=== PATIENT | female | born 1945 | race Asian ===

== ENCOUNTER → 2017-09-30 | Outpatient (CLI) | payer MEDICARE ==
[~2017-09-30] MED LIST: ACEBUTOLOL HCL400 MG PO; AMLODIPINE BES2.5 MG PO; BENZONATATE200 MG PO; CELEBREX; CELEBREX200 MG PO; DOXYCYCLINE HYCLATE PO; GLIMEPERIDE PO; LEVOTHYROXINE PO; LOSARTAN PO; MONTELUKAST SODIUM PO; MUCINEX600 MG PO; OMEPRAZOLE BICARB; PANTOPRAZOLE SO40 MG PO; SIMVASTATIN PO; TRADJENTA PO; [UNRECOGNIZED DRUG - OTHER] PO; bystolic PO
== END ==
LOC: US 11:31
PROVIDERS: ATTEND Family Medicine
DX: I82.401 Acute embolism and thrombosis of unspecified deep veins of right lower extremity (principal); M79.604 Pain in right leg; M79.89 Other specified soft tissue disorders
CPT/HCPCS: 93971

== ENCOUNTER → 2017-12-05 | Outpatient (CLI) | payer MEDICARE ==
--- NOTE | 2017-12-05 17:20 | Diagnostic Imaging Report ---
PROCEDURE:X-RAY RIGHT FOOT, COMPLETE COMPARISON:None. INDICATIONS:SWELLING TO RIGHT FOOT. DENIES PAIN FINDINGS: Bones: Well-developed in mineralized without fracture, dislocation, or focal osseous lesion. Mild degenerative changes of the MTP. An os peroneum is present. The ankle, hindfoot, and midfoot are unremarkable. Soft tissues: Unremarkable. CONCLUSION: Mild degenerative changes of the first MTP. Otherwise unremarkable exam. Dictated by: Tyrese Enriquez M.D. on 12/05/2017 at 17:20 Electronically approved by: Tyrese Enriquez M.D. on 12/05/2017 at 17:20
== END | disposition home or self-care (01) ==
LOC: RAD 12:43
PROVIDERS: ATTEND Family Medicine
DX: M79.671 Pain in right foot (principal); M79.661 Pain in right lower leg; R60.9 Edema, unspecified
CPT/HCPCS: 93926

== ENCOUNTER 2018-05-30 22:46 | Observation (INO) | payer MEDICARE ==
[~2018-05-30] VITALS: Ht 157.5 cm; Wt 69.9 kg
[2018-05-30] MEDS ORDERED: ASPIRIN 81 MG CHEW TAB PO ONE (23:00)
[2018-05-30] MEDS ORDERED: NITROGLYCERIN 2% OINT 1 GM PKT TOP ONE (23:00)
[2018-05-30 23:02] LABS: BASOPHILS # (AUTO) 0.1 (0.0-0.1); BASOPHILS % 0.7 % (0.0-1.0); EOSINOPHILS # (AUTO) 0.1 (0.0-0.4); EOSINOPHILS % 1.4 % (0.0-6.0); HEMATOCRIT 36.6 % (34.2-44.1); HEMOGLOBIN 12.2 g/dL (12.0-16.0); LYMPHOCYTES # (AUTO) 3.1 (1.0-3.2); LYMPHOCYTES % 34.4 % (18.0-39.1); MEAN CORPUSCULAR HEMOGLOBIN 28.5 pg (28-32); MEAN CORPUSCULAR HGB CONC 33.3 g/dL (31-35); MEAN CORPUSCULAR VOLUME 85.5 fL (81-99); MONOCYTES # (AUTO) 0.7 (0.2-0.8); MONOCYTES % 7.8 % (4.4-11.3); NEUTROPHILS % 55.5 % (38.7-80.0); PLATELET COUNT 288 x10e3/uL (140-360); RED BLOOD COUNT 4.28 x10e6/uL (3.6-5.1); RED CELL DISTRIBUTION WIDTH 15.2 % (11.7-14.4)
[2018-05-30 23:13] LABS: INR 1.01; PROTHROMBIN TIME 12.5 seconds (11.9-14.5)
[2018-05-30 23:22] LABS: ALANINE AMINOTRANSFERASE 21 IU/L (0-55); ALBUMIN 3.7 g/dL (3.5-5.0); ALKALINE PHOSPHATASE 74 IU/L (40-150); ANION GAP 15.5 mmol/L (8-16); BLOOD UREA NITROGEN 11 mg/dL (7-26); BUN/CREATININE RATIO 13 (6-25); CALCIUM 8.7 mg/dL (8.4-10.2); CARBON DIOXIDE 23 mmol/L (22-29); CHLORIDE 106 mmol/L (98-107); CREATINE KINASE 52 IU/L (29-168); CREATININE, SERUM 0.88 mg/dL (0.57-1.11); EST GLOMERULAR FILTRATION RATE > 60 ML/MIN (60-); GLUCOSE 162 mg/dL (74-118); POTASSIUM 3.5 mmol/L (3.5-5.1); SODIUM 141 mmol/L (136-145)
[2018-05-30 23:25] LABS: CLARITY,URINE CLEAR (CLEAR); COLOR,URINE YELLOW (YELLOW); LEUKOCYTE ESTERASE ,URINE NEGATIVE (NEGATIVE); NITRITE,URINE NEGATIVE (NEGATIVE); PROTEIN,URINE DIPSTICK 1+ (NEGATIVE)
[2018-05-30 23:26] LABS: BILIRUBIN,URINE NEGATIVE (NEGATIVE); KETONES,URINE NEGATIVE (NEGATIVE); URINE UROBILINOGEN 0.2 mg/dL (0.2 - 1)
[2018-05-30 23:30] LABS: BACTERIA,URINE FEW /HPF; EPITHELIAL CELLS,URINE FEW /LPF; MUCUS,URINE MANY (RARE); RBC,URINE 0-5 /HPF (0-5); WBC,URINE (MAN) 0-5 /HPF (0-5)
[2018-05-31] VITALS (9 sets, daily range): BP systolic 129–158; BP diastolic 56–76
--- NOTE | 2018-05-31 00:09 | Diagnostic Imaging Report ---
CHEST SINGLE (PORTABLE), 05/30/2018 10:52 PM Technique: CHEST SINGLE (PORTABLE) Comparison: 01/28/2017 Clinical history: Chest pain, shortness of breath Findings: Single portable chest radiograph Impression: 1. Stable cardiomediastinal silhouette with mildly tortuous aorta. 2. No consolidation or edema. 3. No effusion or pneumothorax. Signed by: Dr Yesenia Chaudhry MD on 05/31/2018 12:06 AM
[2018-05-31] MEDS ORDERED: DEXTROSE 50% SYRINGE 50 ML IV PRN (00:45)
[2018-05-31] MEDS ORDERED: SODIUM CHLORIDE FLUSH 10 ML SYR INJ PRN (00:45)
[2018-05-31] MEDS ORDERED: MORPHINE SULFATE 2 MG/ML SYR IV PRN (00:45)
[2018-05-31] MEDS ORDERED: ONDANSETRON HCL INJ 2 MG/ML VIAL IV PRN (00:45)
[2018-05-31] MEDS ORDERED: CELEBREX200 MG PO (01:06)
[2018-05-31] MEDS ORDERED: LEVOTHYROXINE75 MCG PO (01:06)
[2018-05-31] MEDS ORDERED: AMLODIPINE BESYL5 MG PO (01:06)
[2018-05-31] MEDS ORDERED: GLIMEPIRIDE2 MG PO (01:06)
[2018-05-31] MEDS ORDERED: ATORVASTATIN CA20 MG PO (01:06)
[2018-05-31] MEDS ORDERED: MONTELUKAST SOD10 MG PO (01:06)
[2018-05-31] MEDS ORDERED: LOSARTAN POTAS100 MG PO (01:06)
[2018-05-31] MEDS ORDERED: METFORMIN HCL500 M1 PO (01:06)
[2018-05-31] MEDS ORDERED: TIZANIDINE HCL4 MG PO (01:06)
[2018-05-31] MEDS ORDERED: ONDANSETRON HCL4 MG PO (01:06)
[2018-05-31] MEDS: FAMOTIDINE 20 MG/2 ML VIAL IV SCH ×3 (01:16→21:00)
[2018-05-31] MEDS ORDERED: SOLIQUA SC (02:36)
[2018-05-31] MEDS: NITROGLYCERIN 2% OINT 1 GM PKT TOP SCH ×2 (05:16→12:27)
[2018-05-31 07:18] LABS: CREATINE KINASE MB 0.7 ng/mL (0-5.0)
[2018-05-31] MEDS: INSULIN REGULAR, HUMAN 100 UNIT/1 ML 3ML VIAL SQ SCH ×4 (07:30→20:42)
[2018-05-31] MEDS: ASPIRIN 81 MG ENTERIC COATED PO SCH (09:45)
[2018-05-31 15:30] LABS: CREATINE KINASE MB 0.6 ng/mL (0-5.0)
[2018-05-31] MEDS: ENOXAPARIN SOD INJ 40 MG/0.4 ML SYR SC SCH (18:43)
[2018-05-31] MEDS: ATORVASTATIN 20 MG TAB PO SCH (21:00)
[2018-06-01] VITALS: BP 147/63
--- NOTE | 2018-06-01 01:01 | Consultation ---
DATE OF CONSULTATION: May 31, 2018 CARDIOLOGY CONSULTATION REASON FOR CONSULTATION: Chest pain. HISTORY: This is a 73-year-old lady who is known with longstanding history of diabetes mellitus, hypertension, emphysema, and hypothyroidism. Patient's activity to a certain extent is limited because of back problem and left knee pain. She came to this institution complaining of chest pressure, chest tightness, very vague in characteristic. She cannot describe it. Her cardiac enzymes so far are normal and she is feeling better. Her blood pressure "also was elevated" and now is under better control. Cardiac consultation is obtained. Patient is very poor historian. She does have shortness of breath on exertion, easy fatigability, and chest tightness. Her activities are very much limited. She is almost sedentary. There is some orthopnea, but no paroxysmal nocturnal dyspnea. There is no syncope or presyncope. REVIEW OF SYSTEMS CARDIAC: As per above. PULMONARY: Chronic history of emphysema "and shortness of breath". She uses inhaler at times. She does have easy fatigability. There is no recent travel. There is no pleuritic chest pain. There is no hemoptysis. Occasional nonproductive cough. GI: She does have 4 loose bowel movements per day. There is no hematemesis, no melena. : Increased frequency of urination. MUSCULOSKELETAL: Low back pain. NEUROLOGIC: No dizzy spells. No syncope, no seizure. HEMATOLOGY: No easy bruising or bleeding. GENERAL: No fever. No chills. SOCIAL HISTORY: She is . She is nonsmoker, not an alcohol drinker. HOME MEDICATIONS: Long list including 1. Acebutolol 400 mg a day. 2. Norvasc 5 mg a day. 3. Losartan 100 mg a day. 4. Levothyroxine 75 mg a day. 5. Lisinopril 20 mg a day. 6. Celebrex 200 mg a day. 7. Metformin 500 mg twice a day. 8. Amaryl 2 mg a day. 9. Singulair 10 mg a day. 10. Protonix 40 mg a day. ALLERGIES: PENICILLIN. PAST MEDICAL HISTORY 1. Diabetes mellitus. 2. Hypertension. 3. Hypothyroidism 4. Emphysema. 5. Neck surgery, possible abscess by description. 6. Chronic back pain. 7. Left knee surgery after a fall and fractured left knee. 8. Gum surgery. 9. Cholecystectomy. 10. Appendectomy. FAMILY HISTORY: Father at age 82 with stomach cancer. Mother at age 63 with cancer, questionable primary. Three siblings, 2 brothers and 1 sister, all healthy. Three children, 1 son and 2 daughters, also healthy. PHYSICAL EXAMINATION VITALS: Height of 5 feet 2 inches, weight of 184 pounds, blood pressure 150/60, heart rate of 60, respiratory rate of 18, and temperature of 98 Fahrenheit. HEENT: Pupils are equal and reactive. NECK: No elevation of jugular venous pulsation. There is scar of previous surgery right neck. No bruit. CHEST: Decreased lung expansion. HEART: PMI 5th left intercostal space. Normal 1st and 2nd heart sounds. ABDOMEN: Soft with good bowel sounds. No organomegaly. EXTREMITIES: No cyanosis, no clubbing, no edema. No signs of deep venous thrombosis. NEUROLOGIC: Able to move her extremities. She speaks slowly. No motor deficits. LAB DATA: Sodium of 141, potassium 3.5, BUN of 11, and creatinine of 0.8. PT of 12.5 seconds. PTT of 32 seconds. BNP of 109. White blood cell count of 8.9, hemoglobin 12.2, and hematocrit 36%. EKG showing sinus bradycardia, low voltage; diffuse ST changes; poor R-wave progression. IMPRESSIONS 1. Poor historian. 2. Diabetes mellitus. 3. Hypertension. 4. Emphysema. 5. Hypothyroidism. 6. Degenerative joint disease of the back. 7. Shortness of breath, multifactorial. 8. Chest pain, to be cardiac with all the risk factors. 9. Debility and limited activity. 10. Hypothyroidism. PLAN: Cardiac-jean, I would concur with the plan. Continuation of antihypertensive medication and DVT prophylaxis. Antiplatelet agents. Options of workup are discussed. Will schedule patient for a Lexiscan nuclear cardiac stress test. Will check an echocardiogram and will adjust medication for the blood pressure and heart rate. Differential diagnoses are discussed and explained. Questions are answered. Job#: [id number]
[2018-06-01 04:00] VITALS: BP 139/62
[2018-06-01 05:47] LABS: BASOPHILS % 0.4 % (0.0-1.0); EOSINOPHILS # (AUTO) 0.1 (0.0-0.4); EOSINOPHILS % 1.2 % (0.0-6.0); HEMATOCRIT 36.9 % (34.2-44.1); HEMOGLOBIN 12.3 g/dL (12.0-16.0); LYMPHOCYTES # (AUTO) 2.6 (1.0-3.2); LYMPHOCYTES % 29.4 % (18.0-39.1); MEAN CORPUSCULAR HEMOGLOBIN 28.5 pg (28-32); MEAN CORPUSCULAR HGB CONC 33.3 g/dL (31-35); MEAN CORPUSCULAR VOLUME 85.6 fL (81-99); MONOCYTES # (AUTO) 0.7 (0.2-0.8); MONOCYTES % 7.4 % (4.4-11.3); NEUTROPHILS # (AUTO) 5.5 (2.1-6.9); NEUTROPHILS % 61.3 % (38.7-80.0); PLATELET COUNT 299 x10e3/uL (140-360); RED BLOOD COUNT 4.31 x10e6/uL (3.6-5.1); RED CELL DISTRIBUTION WIDTH 15.2 % (11.7-14.4)
[2018-06-01 06:09] LABS: ALANINE AMINOTRANSFERASE 21 IU/L (0-55); ALBUMIN 3.6 g/dL (3.5-5.0); ALBUMIN/GLOBULIN RATIO 1.1 (0.8-2.0); ALKALINE PHOSPHATASE 73 IU/L (40-150); BLOOD UREA NITROGEN 11 mg/dL (7-26); BUN/CREATININE RATIO 13 (6-25); CARBON DIOXIDE 24 mmol/L (22-29); CHLORIDE 106 mmol/L (98-107); CREATININE, SERUM 0.84 mg/dL (0.57-1.11); EST GLOMERULAR FILTRATION RATE > 60 ML/MIN (60-); GLUCOSE 184 mg/dL (74-118); SODIUM 142 mmol/L (136-145)
[2018-06-01] MEDS: LEVOTHYROXINE SODIUM 75 MCG TAB PO SCH (06:27)
[2018-06-01 06:30] LABS: THYROID STIMULATING HORMONE 1.562 uIU/mL (0.350-4.940)
[2018-06-01 06:59] LABS: CHOL/HDL RATIO 3.4 (3.0-3.6)
[2018-06-01] MEDS: INSULIN REGULAR, HUMAN 100 UNIT/1 ML 3ML VIAL SQ SCH ×4 (07:30→21:00)
[2018-06-01 08:00] VITALS: BP 144/65
[2018-06-01] MEDS ORDERED: LEVOTHYROXINE SODIUM 75 MCG TAB PO SCH (09:00)
[2018-06-01] MEDS ORDERED: METFORMIN HCL 500 MG TAB CR PO SCH (09:00)
[2018-06-01] MEDS ORDERED: ATORVASTATIN 20 MG TAB PO SCH (09:00)
[2018-06-01] MEDS ORDERED: GLIMEPIRIDE 2 MG TAB PO SCH (09:00)
[2018-06-01] MEDS ORDERED: ACETAMIN/BUTALBITAL/CAFFEINE TAB PO PRN (10:15)
[2018-06-01] MEDS ORDERED: REGADENOSON 0.4 MG/5 ML SYR IV ONE (10:24)
[2018-06-01] MEDS ORDERED: POTASSIUM CHLORIDE 20 MEQ TAB CR PO NR ×2 (10:30→12:15)
[2018-06-01] MEDS: ASPIRIN 81 MG ENTERIC COATED PO SCH (12:21)
[2018-06-01] MEDS: FAMOTIDINE 20 MG/2 ML VIAL IV SCH ×2 (12:21→22:05)
[2018-06-01] MEDS: LOSARTAN POTASSIUM 100 MG TAB PO SCH (12:22)
[2018-06-01] MEDS: PANTOPRAZOLE SOD 40 MG TABEC PO SCH (12:22)
[2018-06-01] MEDS: AMLODIPINE BESYLATE 5 MG TAB PO SCH ×2 (12:22→18:09)
[2018-06-01] MEDS: TIZANIDINE HCL 4 MG TAB PO SCH (12:22)
[2018-06-01] MEDS: MONTELUKAST SODIUM 10 MG TAB PO SCH (12:22)
--- NOTE | 2018-06-01 13:21 | Cardiology Report ---
DATE OF STUDY: June 01, 2018 LEXISCAN NUCLEAR CARDIAC STRESS TEST TECHNICAL DETAIL: This is a resting-stress protocol. For the resting images, the patient was given 11 millicuries of Myoview. Thirty minutes after, the patient had proper SPECT imaging and scanning. For the stress part, the patient was given Lexiscan 0.4 mg intravenously followed by 29 millicuries of Myoview. Half an hour after that, proper SPECT imaging and scanning were done. RESULTS A. Stress part: Patient with Lexiscan infusion had quite a lot of symptoms. She got T-wave inversion in the inferior leads, and she got severe shortness of breath. B. Nuclear imagin. Myocardial perfusion: A. Resting images showed smooth distribution of the isotope with no abnormal uptake in all segments. B. Stress images: Again, smooth uptake of the tracer in all segments with normal uptake and no defect. 2. Wall motion: Normal heart size with normal contractility and no segmental wall motion abnormality. 3. Heart volume: LV End-diastolic volume 54 mL and LV End-systolic volume 10 mL with left ventricular ejection fraction of 80%. IMPRESSION: Normal myocardial perfusion imaging with normal heart function. The results were discussed with the patient and her . Limitations of this test are explained. In summary, this is a low risk nuclear cardiac stress test. Job#: [id number] CARRI BERRY
[2018-06-01 14:15] VITALS: BP 151/66
[2018-06-01] MEDS: ENOXAPARIN SOD INJ 40 MG/0.4 ML SYR SC SCH (17:00)
[2018-06-01 17:38] VITALS: BP 120/67
[2018-06-01 20:00] VITALS: BP 146/69
[2018-06-01] MEDS: ATORVASTATIN 20 MG TAB PO SCH (22:05)
[2018-06-02] VITALS: BP 148/66
[2018-06-02] MEDS: LEVOTHYROXINE SODIUM 75 MCG TAB PO SCH (06:22)
[2018-06-02 06:27] LABS: ANION GAP 13.5 mmol/L (8-16); BLOOD UREA NITROGEN 11 mg/dL (7-26); BUN/CREATININE RATIO 14 (6-25); CALCIUM 8.9 mg/dL (8.4-10.2); CARBON DIOXIDE 27 mmol/L (22-29); CHLORIDE 107 mmol/L (98-107); EST GLOMERULAR FILTRATION RATE > 60 ML/MIN (60-); GLUCOSE 151 mg/dL (74-118); POTASSIUM 3.5 mmol/L (3.5-5.1); SODIUM 144 mmol/L (136-145)
[2018-06-02] MEDS: INSULIN REGULAR, HUMAN 100 UNIT/1 ML 3ML VIAL SQ SCH ×2 (07:30→11:30)
[2018-06-02 07:50] VITALS: BP 151/72
[2018-06-02] MEDS ORDERED: GLIMEPIRIDE 2 MG TAB PO SCH (08:00)
[2018-06-02] MEDS: ASPIRIN 81 MG ENTERIC COATED PO SCH (09:00)
[2018-06-02] MEDS: TIZANIDINE HCL 4 MG TAB PO SCH (09:00)
[2018-06-02] MEDS: MONTELUKAST SODIUM 10 MG TAB PO SCH (09:00)
[2018-06-02] MEDS: AMLODIPINE BESYLATE 5 MG TAB PO SCH (09:00)
[2018-06-02] MEDS: FAMOTIDINE 20 MG/2 ML VIAL IV SCH (09:00)
[2018-06-02] MEDS: LOSARTAN POTASSIUM 100 MG TAB PO SCH (09:00)
[2018-06-02] MEDS: PANTOPRAZOLE SOD 40 MG TABEC PO SCH (09:00)
[2018-06-02 12:17] VITALS: BP 99/57
[2018-06-02] MEDS ORDERED: AMLODIPINE BESYL5 MG PO (12:44)
[2018-06-02] MEDS ORDERED: FIORINAL 50-321 EACH PO (13:02)
[2018-06-02] MEDS ORDERED: FAMOTIDINE 20 MG TAB PO SCH (16:30)
== END 2018-06-02 13:36 | disposition home or self-care (01) ==
LOC: ER 22:46 → ERHOLD 05-31 00:50 → MED/SURG 05-31 01:29
DX: R07.89 Other chest pain (principal); E11.9 Type 2 diabetes mellitus without complications; I10 Essential (primary) hypertension; Z88.0 Allergy status to penicillin; E03.9 Hypothyroidism, unspecified; M19.90 Unspecified osteoarthritis, unspecified site; R06.02 Shortness of breath; R53.81 Other malaise; J43.9 Emphysema, unspecified; Z80.0 Family history of malignant neoplasm of digestive organs; Z80.8 Family history of malignant neoplasm of other organs or systems; E87.6 Hypokalemia
CPT/HCPCS: 36415 ×4; 71045; 78452; 80048; 80053 ×2; 80061; 81001; 82550 ×2; 82553 ×2; 82948 ×3; 83036; 83880; 84443; 84484 ×2; 85025 ×2; 85610; 85730; 93005 ×2; 93017; 93306; 96376; 99284; A9502; G0378 ×3; J1650; J2270; S0164 ×2

== ENCOUNTER → 2018-08-31 | Day surgery (SDC) | payer MEDICARE ==
[2018-08-23 13:06] LABS: BASOPHILS # (AUTO) 0.1 (0.0-0.1); BASOPHILS % 0.5 % (0.0-1.0); EOSINOPHILS # (AUTO) 0.1 (0.0-0.4); EOSINOPHILS % 1.4 % (0.0-6.0); HEMATOCRIT 41.3 % (34.2-44.1); HEMOGLOBIN 13.4 g/dL (12.0-16.0); LYMPHOCYTES # (AUTO) 3.2 (1.0-3.2); MEAN CORPUSCULAR HGB CONC 32.4 g/dL (31-35); MEAN CORPUSCULAR VOLUME 86.2 fL (81-99); MONOCYTES # (AUTO) 0.6 (0.2-0.8); MONOCYTES % 6.3 % (4.4-11.3); NEUTROPHILS # (AUTO) 5.4 (2.1-6.9); NEUTROPHILS % 57.6 % (38.7-80.0); PLATELET COUNT 288 x10e3/uL (140-360); RED BLOOD COUNT 4.79 x10e6/uL (3.6-5.1); RED CELL DISTRIBUTION WIDTH 14.8 % (11.7-14.4)
[~2018-08-31] MED LIST changes: +AMLODIPINE BESYL5 MG PO; +ATORVASTATIN CA20 MG PO; +EPHEDRINE SULFATE INJ 50 MG/10 ML SYR ONE; +FENTANYL CITRATE/PF 100MCG/2 ML INJ ONE; +FIORINAL 50-321 EACH PO; +GLIMEPIRIDE2 MG PO; +HYOSCYAMINE SULFATE 0.5 MG/ML INJ ONE; +LABETALOL HCL 5 MG/ML 20ML VIAL ONE; +LANTUS 3ML100 UNITS/ SC; +LEVOTHYROXINE75 MCG PO; +LIDOCAINE HCL 2% LOCAL INJ 5 ML SDV VIAL INJ ONE; +LOSARTAN POTAS100 MG PO; +METFORMIN HCL500 M1 PO; +MIDAZOLAM HCL 2 MG/2 ML VIAL ONE; +MONTELUKAST SOD10 MG PO; +ONDANSETRON HCL4 MG PO; +PROPOFOL IV EMULSION 10 MG/ML 50 ML VIAL ONE; +SOLIQUA SC; +TIZANIDINE HCL4 MG PO; +VIT D3 PO
[2018-08-31 15:07] VITALS: BP 117/64
--- NOTE | 2018-08-31 15:35 | Operative Report ---
DATE OF PROCEDURE: August 31, 2018 REFERRING PHYSICIAN: Dr. Song Velasquez. PROCEDURES PERFORMED: 1. Esophagogastroduodenoscopy with biopsies. 2. Colonoscopy with polypectomy. INDICATIONS FOR ESOPHAGOGASTRODUODENOSCOPY: Nausea and vomiting. INDICATIONS FOR COLONOSCOPY: Surveillance colonoscopy. Personal history of colon polyps. MEDICATION: Patient was done under MAC. Please see anesthesiologist's note. PROCEDURE: With the patient in the left lateral decubitus position, the flexible fiberoptic Olympus gastroscope was introduced into the esophagus under direct visualization without any difficulty. There was some patchy erythema noted in the distal esophagus. The scope was then advanced with ease into the stomach. Mucosa overlying the antrum and the body revealed some patchy intense erythema and moderate edema. Biopsies were obtained. There was some focal patchy nodularity noted in the midbody along the anterior wall, and that was biopsied. Also, a gastric ulcer was noted in the antrum along the posterior wall, and that was biopsied. The pylorus appeared to be of normal contour and shape, was intubated with ease, and the scope was advanced all the way to the 2nd portion of the duodenum. The scope was then withdrawn slowly. Mucosa overlying the proximal 2nd portion and the duodenal bulb appeared to be within normal limits. The scope was then withdrawn back into the stomach and retroflexed, and the mucosa overlying the fundus and the cardia appeared to be within normal limits. The scope was then straightened out. It was subsequently withdrawn. Patient tolerated the procedure well. IMPRESSION: 1. Distal esophagitis. 2. Gastritis biopsied. Biopsies sent to stain for H. pylori. 3. Patchy nodularity midbody anterior wall biopsied. PLAN: Follow up histology. Initiate Protonix 40 mg 1 p.o. a.c. b.i.d. Add Carafate also 1 gram p.o. a.c. t.i.d. and nightly. Patient was then turned around and after adequate lubrication of the anal canal, a flexible fiberoptic Olympus colonoscope was inserted into the rectum with ease and advanced all the way to the cecum. One polyp in the cecum was hot biopsied and hemoclipped. The rest of the ascending was within normal limits. One polyp was hot biopsied from the transverse colon. One polyp was hot biopsied from the descending colon. Diverticular disease was noted in the distal descending and the sigmoid. The rectum appeared to be within normal limits. The scope was then retroflexed into the distal rectum and small internal hemorrhoids were noted, none of which was actively bleeding. The scope was then straightened out. It was subsequently withdrawn. Patient tolerated procedure well. IMPRESSION: 1. Cecal polyp hot biopsied and hemoclipped. 2. Transverse colon polyp hot biopsied. 3. Descending colon polyp hot biopsied. 4. Diverticulosis, sigmoid. 5. Internal hemorrhoids, none actively bleeding. PLAN: Follow up histology. Initiate high-fiber low-fat diet. Initiate high-fiber supplement. Patient might benefit from a followup colonoscopy in 3 to 5 years. Job#: [id number] EV cc:SONG VELASQUEZ MD
--- NOTE | 2018-08-31 15:39 | Operative Report ---
DATE OF PROCEDURE: August 31, 2018 REFERRING PHYSICIAN: Dr. Song Velasquez. PROCEDURE PERFORMED: Esophagogastroduodenoscopy with biopsies and colonoscopy with polypectomy. INDICATIONS FOR ESOPHAGOGASTRODUODENOSCOPY: Nausea and vomiting. MEDICATION: Patient was done under MAC. Please see anesthesiologist's note. PROCEDURE: With patient in left lateral decubitus position, a flexible fiberoptic Olympus gastroscope was introduced into the esophagus under direct visualization without any difficulty. There was some patchy erythema noted in the distal esophagus. The scope was advanced with ease into the stomach and mucosa overlying the antrum and the body revealed some patchy intense erythema and moderate edema, and biopsies were obtained, sent to stain for H. pylori. There was a minute ulcer noted in the antrum and that was also biopsied. The pylorus was of normal contour and shape, was intubated with ease and the scope was advanced all the way to the 2nd portion of the duodenum. The scope was then withdrawn slowly. Mucosa overlying the proximal 2nd portion and the duodenal bulb appeared to be within normal limits. The scope was then withdrawn back into the stomach and retroflexed and mucosa overlying the fundus and the cardia appeared to be within normal limits. There was some patchy nodularity mid body biopsied along the anterior wall. The scope was then straightened out. The stomach was decompressed. The scope was subsequently withdrawn. Patient tolerated the procedure well. IMPRESSIONS 1. Distal esophagitis. 2. Gastritis, biopsied. Biopsies sent stain for Helicobacter pylori. 3. Patchy nodularity mid body. Biopsied. PLAN: Follow up histology. Initiate Protonix 40 mg 1 p.o. a.c. b.i.d. Patient was then turned around and after adequate lubrication of the anal canal, a flexible fiberoptic Olympus colonoscope was inserted into the rectum with ease and advanced all the way to the cecum. One polyp was hot biopsied from the cecum. The scope was then withdrawn slowly. Mucosa overlying the ascending colon appeared to be within normal limits. There was a polyp hot biopsied from the transverse colon. A polyp was hot biopsied from the descending colon. Diverticular disease was noted to occupy the sigmoid and parts of the descending. The rectum appeared to be within normal limits. The scope was then retroflexed into the distal rectum and small internal hemorrhoids were noted, none of which was actively bleeding. The scope was then straightened out and was subsequently withdrawn. Patient tolerated the procedure well. IMPRESSIONS 1. Cecal polyp, hot biopsied and hemoclipped. 2. Transverse colon polyp, hot biopsied. 3. Descending colon polyp, hot biopsied. 4. Diverticulosis, sigmoid colon. 5. Internal hemorrhoids, none actively bleeding. PLAN: Follow up histology. Initiate high-fiber, low-fat diet. Initiate high-fiber supplement. Patient might benefit from a followup colonoscopy in 3 to 5 years. CANCEL THIS DICTATION, PLEASE Job#: [id number] TA
== END | disposition home or self-care (01) ==
LOC: OR 09:55
PROVIDERS: ATTEND Internal Medicine Gastroenterology
DX: K29.50 Unspecified chronic gastritis without bleeding (principal); D12.4 Benign neoplasm of descending colon; K31.7 Polyp of stomach and duodenum; K25.9 Gastric ulcer, unspecified as acute or chronic, without hemorrhage or perforation; K20.9 Esophagitis, unspecified; K31.89 Other diseases of stomach and duodenum; K57.30 Diverticulosis of large intestine without perforation or abscess without bleeding; K21.9 Gastro-esophageal reflux disease without esophagitis; K64.8 Other hemorrhoids; E11.9 Type 2 diabetes mellitus without complications; I10 Essential (primary) hypertension; J45.909 Unspecified asthma, uncomplicated; Z88.0 Allergy status to penicillin; Z01.810 Encounter for preprocedural cardiovascular examination; Z01.812 Encounter for preprocedural laboratory examination; Z79.4 Long term (current) use of insulin; Z80.0 Family history of malignant neoplasm of digestive organs
CPT/HCPCS: 36415 ×2; 43239; 45384; 82948; 85025; 88305; 88312; 93005; J1980; J2001; J2250; J3490; 45378

== ENCOUNTER → 2018-10-24 | Outpatient (CLI) | payer MEDICARE ==
[~2018-10-24] MED LIST changes: -EPHEDRINE SULFATE INJ 50 MG/10 ML SYR ONE; -FENTANYL CITRATE/PF 100MCG/2 ML INJ ONE; -HYOSCYAMINE SULFATE 0.5 MG/ML INJ ONE; -LABETALOL HCL 5 MG/ML 20ML VIAL ONE; -LIDOCAINE HCL 2% LOCAL INJ 5 ML SDV VIAL INJ ONE; -MIDAZOLAM HCL 2 MG/2 ML VIAL ONE; -PROPOFOL IV EMULSION 10 MG/ML 50 ML VIAL ONE
== END ==
LOC: MAMMO 10:05
DX: Z12.31 Encounter for screening mammogram for malignant neoplasm of breast (principal)
CPT/HCPCS: 77067

== ENCOUNTER 2019-03-06 10:58 | Emergency (ER) | payer MEDICARE ==
[~2019-03-06] VITALS: Ht 157.5 cm; Wt 69.9 kg
[2019-03-06] MEDS ORDERED: BELLADONNA ALK/PHENOBARBITAL 5 ML UDC PO STA (11:40)
[2019-03-06] MEDS ORDERED: LIDOCAINE VISC 2% SOLN 15 ML UDC PO ONE (11:45)
[2019-03-06] MEDS ORDERED: MAGNESIUM/ALUMINUM/SIMETHICONE 30 ML UDC PO ONE (11:45)
--- NOTE | 2019-03-06 12:25 | Diagnostic Imaging Report ---
EXAMINATION: CHEST SINGLE (PORTABLE) INDICATION: Shortness of breath. COMPARISON: Chest radiograph 05/30/2018. FINDINGS: TUBES and LINES: None. LUNGS: Low lung volumes which decreases sensitivity and specificity for pathology. There are mild patchy bibasilar opacities. No evidence of pulmonary edema. There is biapical pleural-parenchymal opacity, suggestive of prior granulomatous disease. PLEURA: No pleural effusion or pneumothorax. HEART AND MEDIASTINUM: The cardiomediastinal silhouette is unremarkable. BONES AND SOFT TISSUES: No acute osseous abnormality. UPPER ABDOMEN: No free air under the diaphragm. IMPRESSION: Low lung volumes with patchy bibasilar opacities, which may reflect atelectasis or early pneumonia in the appropriate clinical setting. No lobar consolidation. Suggest follow-up chest radiograph in 6-8 weeks to assess for resolution. Signed by: Dr. Lucas Prasad MD on 03/06/2019 12:22 PM
[2019-03-06 12:37] LABS: BASOPHILS % 0.5 % (0.0-1.0); EOSINOPHILS # (AUTO) 0.1 (0.0-0.4); HEMATOCRIT 38.3 % (34.2-44.1); HEMOGLOBIN 12.7 g/dL (12.0-16.0); LYMPHOCYTES # (AUTO) 2.5 (1.0-3.2); MEAN CORPUSCULAR HEMOGLOBIN 28.3 pg (28-32); MEAN CORPUSCULAR HGB CONC 33.2 g/dL (31-35); MEAN CORPUSCULAR VOLUME 85.3 fL (81-99); MONOCYTES # (AUTO) 0.5 (0.2-0.8); MONOCYTES % 6.3 % (4.4-11.3); NEUTROPHILS # (AUTO) 5.1 (2.1-6.9); NEUTROPHILS % 61.8 % (38.7-80.0); PLATELET COUNT 274 x10e3/uL (140-360); RED BLOOD COUNT 4.49 x10e6/uL (3.6-5.1); RED CELL DISTRIBUTION WIDTH 15.4 % (11.7-14.4)
[2019-03-06 13:01] LABS: INR 0.94; PROTHROMBIN TIME 13.1 seconds (11.9-14.5)
[2019-03-06 13:02] LABS: PARTIAL THROMBOPLASTIN TIME 33.2 seconds (23.8-35.5)
[2019-03-06 13:07] LABS: ALBUMIN 3.7 g/dL (3.5-5.0); ANION GAP 10.1 mmol/L (8-16); CALCIUM 9.2 mg/dL (8.4-10.2); CREATININE, SERUM 0.98 mg/dL (0.57-1.11); POTASSIUM 4.1 mmol/L (3.5-5.1)
[2019-03-06 13:15] LABS: CREATINE KINASE MB 0.5 ng/mL (0-5.0)
--- NOTE | 2019-03-06 15:01 | Diagnostic Imaging Report ---
EXAM: CT Chest WITH contrast- Pulmonary Embolism Protocol INDICATION: Chest pain. COMPARISON: Chest radiograph 03/06/2019. TECHNIQUE: Chest was scanned utilizing a multidetector helical scanner from the lung apex through the level of the diaphragm after administration of IV contrast. Thin section reconstructions were obtained with special concentration on the pulmonary arteries. Coronal and sagittal reformations were obtained. Pulmonary embolism protocol was performed. IV CONTRAST: 100 cc of Isovue 370 RADIATION DOSE: Total DLP: 437.3 mGy*cm Dose modulation, iterative reconstruction, and/or weight based adjustment of the mA/kV was utilized to reduce the radiation dose to as low as reasonably achievable. COMPLICATIONS: None FINDINGS: LINES/ TUBES: None. PULMONARY ARTERIES: No filling defect is identified within the pulmonary arteries to the segmental level. The subsegmental pulmonary arteries are not well opacified. Main pulmonary artery measures 2.5 cm in diameter. There are two adjacent 5 mm hyperdense structures in the left upper lobe on series 2, image 37 which likely represent pulmonary AVM is. The feeding artery is seen on images 34 through 36 and the draining vein with associated varix is seen on images 39 through 47. The feeding artery measures approximately 2 mm. LUNGS AND AIRWAYS: The central airways are patent. Multifocal patchy opacities in all lobes, most pronounced in the bilateral lower lobes. No evidence of lobar consolidation or pulmonary edema. PLEURA: The pleural spaces are clear. HEART AND MEDIASTINUM: The thyroid gland is normal. No mediastinal, hilar or axillary lymphadenopathy. There is moderate cardiomegaly. No pericardial effusion. There is a common origin of the right brachiocephalic artery and the left common carotid artery. UPPER ABDOMEN: Limited contrast-enhanced views of the upper abdomen. Status post cholecystectomy. BONES: No acute osseous abnormality. No suspicious lytic or blastic lesions. SOFT TISSUES: Unremarkable. IMPRESSION: No evidence of pulmonary embolism to the level of the segmental pulmonary arteries. 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 The feeding artery measures approximately 2 mm. Suggest follow-up CT PE protocol in 12 months and follow-up pulmonary consultation. Multiple patchy opacities, which likely represent atelectasis rather than infectious process. Signed by: Dr. Lucas Prasad MD on 03/06/2019 2:58 PM
[2019-03-06] MEDS ORDERED: IOPAMIDOL 370 MG/ML 200 ML INFUS..BTL INJ ONE (15:24)
[2019-03-06] MEDS ORDERED: SODIUM CHLORIDE 0.9% 50ML 50 ML ONE (15:25)
[2019-03-06] MEDS ORDERED: ASPIRIN 325 MG TAB PO ONE (21:00)
[2019-03-06] MEDS ORDERED: ASPIRIN 81 MG CHEW TAB PO ONE (21:00)
[2019-03-07] MEDS ORDERED: ASPIRIN 325 MG TAB PO SCH (09:00)
== END 2019-03-06 16:04 | disposition home or self-care (01) ==
LOC: ER 10:58
DX: R07.89 Other chest pain (principal); K21.0 Gastro-esophageal reflux disease with esophagitis
CPT/HCPCS: 36415; 71045; 71260; 80053; 82550; 82553; 83880; 84484; 85025; 85379; 85610; 85730; 93005; 99284; Q9967

== ENCOUNTER → 2019-11-21 | Outpatient (CLI) | payer MEDICARE ==
[~2019-11-21] MED LIST changes: +IOPAMIDOL 370 MG/ML 200 ML INFUS..BTL INJ ONE; +SODIUM CHLORIDE 0.9% 50ML 50 ML ONE
[2019-11-21 13:23] LABS: BLOOD UREA NITROGEN 12 mg/dL (7-26); BUN/CREATININE RATIO 14 (6-25); CREATININE, SERUM 0.87 mg/dL (0.57-1.11); EST GLOMERULAR FILTRATION RATE > 60 ML/MIN (60-)
--- NOTE | 2019-11-21 14:37 | Diagnostic Imaging Report ---
CT of the chest, with contrast. History: Chest pain, pulmonary nodules. Comparison: CT PE study from 03/06/2019. Technique: Multidetector CT scanning of the chest was performed from the level of the apices to the upper abdomen after intravenous administration of contrast. Coronal and sagittal multiplanar reformations were obtained. RADIATION DOSE: Total DLP: 496.79 mGy*cm Dose modulation, iterative reconstruction, and/or weight based adjustment of the mA/kV was utilized to reduce the radiation dose to as low as reasonably achievable. FINDINGS: Subcentimeter hypodense nodule is identified within the left thyroid lobe. Given small size, no follow-up examination is warranted. The remaining visualized structures within the base of the neck demonstrate no significant abnormalities. The thoracic aorta is normal course and caliber with atherosclerotic calcifications. There is moderate cardiomegaly present, unchanged from the prior examination. No abnormal pericardial fluid is present. There is no abnormal axillary, mediastinal, or hilar lymph node enlargement. The trachea and proximal airways are patent. There are 2 stable nodular opacities present within the left upper lobe (image 36) which measure 5 mm each and are unchanged in size from the prior examination. These lesions were previously described as pulmonary AVMs but appear hypoenhancing on today's examination and are favored to represent reflect pulmonary nodules. The lungs demonstrate mild bilateral dependent density/atelectasis as well as a subtle mosaic attenuation. There is no evidence for consolidation, pneumothorax, mass/new nodule, or pleural effusion. The gallbladder is surgically absent. There is stable mild prominence of the central intrahepatic bile ducts and common bile duct measuring up to 0.9 cm. Findings may be secondary to reservoir phenomenon from postcholecystectomy status. No radiopaque biliary stone is identified. The remaining visualized intra-abdominal contents are unremarkable. The osseous structures demonstrate stable degenerative changes but evidence for acute fracture or destructive process. The extrathoracic soft tissues are unremarkable. IMPRESSION: No significant interval change from the prior examination from 03/06/2019. Two stable 5 mm pulmonary nodules identified within the left upper lobe. Stable cardiomegaly. Signed by: Dr. Arsalan Gonzalez MD on 11/21/2019 2:34 PM
== END ==
LOC: CT 12:28
PROVIDERS: ATTEND Internal Medicine Critical Care Medicine
DX: R91.8 Other nonspecific abnormal finding of lung field (principal)
CPT/HCPCS: 36415; 71260; 82565; 84520; Q9967

== ENCOUNTER 2020-06-18 13:48 | Emergency (ER) | payer MEDICARE ==
[~2020-06-18] VITALS: Ht 157.5 cm; Wt 69.9 kg
[~2020-06-18 13:48] MED LIST changes: -IOPAMIDOL 370 MG/ML 200 ML INFUS..BTL INJ ONE; -SODIUM CHLORIDE 0.9% 50ML 50 ML ONE
[2020-06-18] MEDS ORDERED: ONDANSETRON HCL INJ 2MG/ML 2ML 2 MG/ML VIAL IV STA (14:30)
[2020-06-18] MEDS ORDERED: PANTOPRAZOLE 40 MG 10ML VIAL IV STA (14:30)
[2020-06-18] MEDS ORDERED: SODIUM CHLORIDE 0.9% 1000ML 1,000 ML IV STA (14:30)
[2020-06-18] MEDS ORDERED: MORPHINE SULFATE 2 MG/ML SYR 1ML IV STA (14:30)
[2020-06-18 15:06] LABS: BASOPHILS # (AUTO) 0.1 (0.0-0.1); BASOPHILS % 0.6 % (0.0-1.0); EOSINOPHILS # (AUTO) 0.1 (0.0-0.4); EOSINOPHILS % 0.7 % (0.0-6.0); HEMATOCRIT 37.2 % (34.2-44.1); HEMOGLOBIN 12.2 g/dL (12.0-16.0); LYMPHOCYTES # (AUTO) 2.8 (1.0-3.2); LYMPHOCYTES % 34.1 % (18.0-39.1); MEAN CORPUSCULAR HEMOGLOBIN 28.5 pg (28-32); MEAN CORPUSCULAR HGB CONC 32.8 g/dL (31-35); MEAN CORPUSCULAR VOLUME 86.9 fL (81-99); MONOCYTES # (AUTO) 0.7 (0.2-0.8); MONOCYTES % 8.9 % (4.4-11.3); NEUTROPHILS # (AUTO) 4.5 (2.1-6.9); NEUTROPHILS % 55.3 % (38.7-80.0); PLATELET COUNT 273 x10e3/uL (140-360); RED BLOOD COUNT 4.28 x10e6/uL (3.6-5.1); RED CELL DISTRIBUTION WIDTH 14.8 % (11.7-14.4)
[2020-06-18 15:11] LABS: BILIRUBIN,URINE NEGATIVE (NEGATIVE); CLARITY,URINE CLEAR (CLEAR); COLOR,URINE YELLOW (YELLOW); KETONES,URINE TRACE (NEGATIVE); LEUKOCYTE ESTERASE ,URINE NEGATIVE (NEGATIVE); NITRITE,URINE NEGATIVE (NEGATIVE); PROTEIN,URINE DIPSTICK 1+ (NEGATIVE); URINE UROBILINOGEN 1 mg/dL (0.2 - 1)
[2020-06-18 15:18] LABS: INR 0.87; PROTHROMBIN TIME 12.3 seconds (11.9-14.5)
[2020-06-18 15:19] LABS: PARTIAL THROMBOPLASTIN TIME 28.1 seconds (23.8-35.5)
[2020-06-18 15:24] LABS: BACTERIA,URINE FEW /HPF; EPITHELIAL CELLS,URINE MODERATE /LPF; RBC,URINE 0-5 /HPF (0-5); WBC,URINE (MAN) 0-5 /HPF (0-5)
[2020-06-18 15:29] LABS: ALANINE AMINOTRANSFERASE 77 IU/L (0-55); ALBUMIN 4.2 g/dL (3.5-5.0); ALBUMIN/GLOBULIN RATIO 1.3 (0.8-2.0); ALKALINE PHOSPHATASE 102 IU/L (40-150); AMYLASE 198 U/L (25-125); ANION GAP 14.6 mmol/L (8-16); BLOOD UREA NITROGEN 13 mg/dL (7-26); BUN/CREATININE RATIO 15 (6-25); CALCIUM 9.1 mg/dL (8.4-10.2); CARBON DIOXIDE 25 mmol/L (22-29); CHLORIDE 105 mmol/L (98-107); CREATINE KINASE 40 IU/L (29-168); CREATININE, SERUM 0.88 mg/dL (0.57-1.11); EST GLOMERULAR FILTRATION RATE > 60 ML/MIN (60-); GLUCOSE 111 mg/dL (74-118); LIPASE 78 U/L (8-78); MAGNESIUM 1.5 MG/DL (1.3-2.1); POTASSIUM 3.6 mmol/L (3.5-5.1); SODIUM 141 mmol/L (136-145)
--- NOTE | 2020-06-18 16:49 | Diagnostic Imaging Report ---
EXAM: CT Abdomen and Pelvis WITH intravenous contrast INDICATION: Abdominal pain COMPARISON: None. TECHNIQUE: Abdomen and pelvis were scanned utilizing a multidetector helical scanner from the lung base to the pubic symphysis after administration of IV contrast. Coronal and sagittal reformations were obtained. Routine protocol was performed. Scan was performed during portal venous phase. IV CONTRAST: 100mL of Isovue 370 ORAL CONTRAST: Water RADIATION DOSE: Total DLP: 792 mGy*cm Dose modulation, iterative reconstruction, and/or weight based adjustment of the mA/kV was utilized to reduce the radiation dose to as low as reasonably achievable. FINDINGS: LOWER THORAX: Bibasilar dependent subsegmental atelectasis. No focal lung base consolidation. HEPATOBILIARY: No focal liver lesion. Status post cholecystectomy. Mild intrahepatic and common bile duct dilation may be related to reservoir effect. SPLEEN: No splenomegaly. PANCREAS: No focal masses or ductal dilatation. ADRENALS: No adrenal nodules. KIDNEYS/URETERS: No hydronephrosis, stones, or solid mass lesions. PELVIC ORGANS/BLADDER: Unremarkable. PERITONEUM / RETROPERITONEUM: No free air or fluid. LYMPH NODES: No lymphadenopathy. VESSELS: Scattered atherosclerotic calcifications of the nonaneurysmal abdominal aorta and major branches. GI TRACT: Duodenal diverticulum. No abnormal bowel thickening. No bowel obstruction. BONES AND SOFT TISSUES: No acute osseous injury. No suspicious lytic or blastic lesions. IMPRESSION: No acute findings in the abdomen or pelvis. Signed by: Dana Glasgow MD on 06/18/2020 4:45 PM
--- NOTE | 2020-06-18 16:50 | Diagnostic Imaging Report ---
EXAMINATION: CHEST SINGLE (PORTABLE) INDICATION: Abdominal pain COMPARISON: Abdomen and pelvis CT of the same day, chest CT 11/21/2019 FINDINGS: LINES/TUBES:None LUNGS:The lungs are moderately inflated. Bibasilar subsegmental atelectasis. No focal consolidation or airspace edema. PLEURA:No pleural effusion or pneumothorax. MEDIASTINUM:The cardiomediastinal silhouette appears mildly enlarged in size and shape. BONES/SOFT TISSUES:No acute osseous injury. ABDOMEN:No free air under the diaphragm. Status post cholecystectomy. IMPRESSION: Bibasilar subsegmental atelectasis. No focal pneumonia or pulmonary edema. Signed by: Dana Glasgow MD on 06/18/2020 4:47 PM
[2020-06-18] MEDS ORDERED: IOPAMIDOL 370 MG/ML 200 ML INFUS..BTL INJ ONE (16:56)
[2020-06-18] MEDS ORDERED: SODIUM CHLORIDE 0.9% 50ML 50 ML ONE (16:56)
--- NOTE | 2020-06-18 17:24 | Diagnostic Imaging Report ---
Examination: CT BRAIN WO CONTRAST History:Headache. Comparison studies:None Technique: Axial images were obtained from the skull base to the vertex. Coronal and sagittal images reconstructed from the axial data. Dose modulation, iterative reconstruction, and/or weight based adjustment of the mA/kV was utilized to reduce the radiation dose to as low as reasonably achievable. Intravenous contrast: None Findings: Scalp: No abnormalities. Bones: No fractures, blastic or lytic lesions. Brain sulci: Appropriate for age. Ventricles: Normal in size and configuration. No hydrocephalus. Extra-axial space: No abnormalities. Parenchyma: No abnormal densities. No masses, hemorrhage, or acute or chronic cortical based vascular insults.. Sellar/suprasellar region: No abnormalities. Craniocervical junction: Patent foramen magnum. No Chiari one malformation. Incidental findings: None. Impression: No intracranial abnormalities. Signed by: Dr. Cleo Ross M.D. on 06/18/2020 5:21 PM
--- NOTE | 2020-06-18 18:21 | Emergency Department Note ---
History of Present Illnes History of Present Illness Chief Complaint: Flu Like Symptoms History of Present Illness This is a 75 year old female Patient in from home with complaints of nausea, vomiting, abdominal pain, headache, and back pain that started today. Patient has a history of GERD but will not take medication for it per . Patient appears to be in pain but is not in any acute distress. 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 Any updates have been documented here. Past Medical History Recent Fever: No Clinical Suspicion of Infectio: No New/Unexplained Change in Ment: No Past Medical History: Hypertension, Diabetes, CHF, Hypothyroidism, Hyperlipedemia, Osteoarthritis Past Surgical History: Cholecysctectomy, Appendectomy, , Knee Replacement Social History Smoking Cessation: Never Smoker Counseling Performed: No Alcohol Use: None Any Illegal Drug Use: No TB Exposure/Symptoms: No Physically hurt or threatened: No Family History Family history of heart diseas: No Other Last Tetanus: UNK Any Pre-Existing Lines (PICC,: No Review of Systems Review of Systems Constitutional: Reports no symptoms EENTM: Reports no symptoms Cardiovascular: Reports no symptoms Respiratory: Reports no symptoms Gastrointestinal: Reports as per HPI Genitourinary: Reports no symptoms Musculoskeletal: Reports no symptoms Integumentary: Reports no symptoms Neurological: Reports no symptoms Psychological: Reports no symptoms Endocrine: Reports no symptoms Hematological/Lymphatic: Reports no symptoms Physical Exam Related Data Allergies: Coded Allergies: Penicillins (Verified Allergy, Unknown, 03/06/19) Triage Vital Signs Vital Signs Date Time Temp Pulse Resp B/P (MAP) Pulse Ox O2 Delivery O2 Flow Rate FiO2 06/18/20 14:22 97.9 55 18 136/63 100 Room Air Vital signs reviewed: Yes Physical Exam CONSTITUTIONAL Constitutional: Present well-developed, Present well-nourished HENT HENT: Present normocephalic, Present atraumatic, Present oropharynx clear/moist, Present nose normal HENT L/R: Present left ext ear normal, Present right ext ear normal EYES Eyes: Reports PERRL, Reports conjunctivae normal NECK Neck: Present ROM normal PULMONARY Pulmonary: Present effort normal, Present breath sounds normal CARDIOVASCULAR Cardiovascular: Present regular rhythm, Present heart sounds normal, Present capillary refill normal, Present normal rate GASTROINTESTINAL Abdominal: Present soft, Present tender (MILD TENDERNESS DIFFUSELY, NO R/G); Absent guarding, Absent rebound GENITOURINARY Genitourinary: Present exam deferred SKIN Skin: Present warm, Present dry MUSCULOSKELETAL Musculoskeletal: Present ROM normal NEUROLOGICAL Neurological: Present alert, Present oriented x 3, Present no gross motor or sensory deficits PSYCHOLOGICAL Psychological: Present mood/affect normal, Present judgement normal Results Laboratory Result Diagram: 06/18/20 1438 06/18/20 1438 Laboratory Laboratory Tests Test 06/18/20 14:41 06/18/20 14:38 Urine Color Yellow (YELLOW) Urine Clarity Clear (CLEAR) Urine pH 7 (5 - 7) Urine Specific [place] 1.025 (1.010-1.025) Urine Protein 1+ (NEGATIVE) Urine Glucose (UA) 1+ (NEGATIVE) Urine Ketones Trace (NEGATIVE) Urine Blood Negative (NEGATIVE) Urine Nitrite Negative (NEGATIVE) Urine Bilirubin Negative (NEGATIVE) Urine Urobilinogen 1 mg/dL (0.2 - 1) Urine Leukocyte Esterase Negative (NEGATIVE) Urine RBC 0-5 /HPF (0-5) Urine WBC 0-5 /HPF (0-5) Urine Epithelial Cells Moderate /LPF (NONE) Urine Bacteria Few /HPF (NONE) White Blood Count 8.18 x10e3/uL (4.8-10.8) Red Blood Count 4.28 x10e6/uL (3.6-5.1) Hemoglobin 12.2 g/dL (12.0-16.0) Hematocrit 37.2 % (34.2-44.1) Mean Corpuscular Volume 86.9 fL (81-99) Mean Corpuscular Hemoglobin 28.5 pg (28-32) Mean Corpuscular Hemoglobin Concent 32.8 g/dL (31-35) Red Cell Distribution Width 14.8 % (11.7-14.4) Platelet Count 273 x10e3/uL (140-360) Neutrophils (%) (Auto) 55.3 % (38.7-80.0) Lymphocytes (%) (Auto) 34.1 % (18.0-39.1) Monocytes (%) (Auto) 8.9 % (4.4-11.3) Eosinophils (%) (Auto) 0.7 % (0.0-6.0) Basophils (%) (Auto) 0.6 % (0.0-1.0) Neutrophils # (Auto) 4.5 (2.1-6.9) Lymphocytes # (Auto) 2.8 (1.0-3.2) Monocytes # (Auto) 0.7 (0.2-0.8) Eosinophils # (Auto) 0.1 (0.0-0.4) Basophils # (Auto) 0.1 (0.0-0.1) Absolute Immature Granulocyte (auto 0.03 x10e3/uL (0-0.1) Prothrombin Time 12.3 seconds (11.9-14.5) Prothromb Time International Ratio 0.87 Activated Partial Thromboplast Time 28.1 seconds (23.8-35.5) Sodium Level 141 mmol/L (136-145) Potassium Level 3.6 mmol/L (3.5-5.1) Chloride Level 105 mmol/L (98-107) Carbon Dioxide Level 25 mmol/L (22-29) Anion Gap 14.6 mmol/L (8-16) Blood Urea Nitrogen 13 mg/dL (7-26) Creatinine 0.88 mg/dL (0.57-1.11) Estimat Glomerular Filtration Rate > 60 ML/MIN (60-) BUN/Creatinine Ratio 15 (6-25) Glucose Level 111 mg/dL (74-118) Calcium Level 9.1 mg/dL (8.4-10.2) Magnesium Level 1.5 MG/DL (1.3-2.1) Total Bilirubin 0.5 mg/dL (0.2-1.2) Aspartate Amino Transf (AST/SGOT) 97 IU/L (5-34) Alanine Aminotransferase (ALT/SGPT) 77 IU/L (0-55) Alkaline Phosphatase 102 IU/L (40-150) Creatine Kinase 40 IU/L (29-168) Creatine Kinase MB 0.60 ng/mL (0-5.0) Troponin I 0.015 ng/mL (0-0.300) B-Type Natriuretic Peptide 43.0 pg/mL (0-100) Total Protein 7.4 g/dL (6.5-8.1) Albumin 4.2 g/dL (3.5-5.0) Globulin 3.2 g/dL (2.3-3.5) Albumin/Globulin Ratio 1.3 (0.8-2.0) Amylase Level 198 U/L (25-125) Lipase 78 U/L (8-78) Lab results reviewed: Yes Imaging Imaging results reviewed: Yes Procedures 12 Lead ECG Interpretation ECG Interpretation : ECG: ECG 1 Agricultural Equipment Sales Engineer: Interpreted by ED physician Date: Jun 18, 2020 Time: 16:56 Rhythm: sinus bradycardia Rate: bradycardia (58) ST segments normal: Yes T wave inversion: V1 T waves flattening: III, aVF, V2, V3, V4, V5, V6 Clinical Impression: abnormal ECG Additional Comments LOW VOLTAGE Assessment & Plan Medical Decision Making MDM ABD PAIN - CBC, CHEM, LIPASE, UA, CT ABD/PELVIS - EVAL FOR UTI, PANCREATITIS, DIVERTICULITIS, COLITIS Reassessment Reassessment DC HOME, F/U PCP, BENTYL 10 MG PO Q6HR PRN Assessment & Plan Final Impression: (1) Abdominal pain Depart Disposition: HOME, SELF-CARE Last Vital Signs Date Time Temp Pulse Resp B/P (MAP) Pulse Ox O2 Delivery O2 Flow Rate FiO2 06/18/20 17:01 98.3 59 16 128/74 98 Room Air Home Meds Reported Medications Insulin Glargine (LANTUS 3ML PEN) 100 Units/1 Ml Inj, 18 UNITS SC DAILY 08/23/18 [Vit D3] No Conflict Check, 1000 U PO DAILY 08/23/18 Amlodipine Besylate (AMLODIPINE BESYLATE) 5 Mg Tablet, 5 MG PO HS, #30 TAB 06/02/18 Ondansetron Hcl (ONDANSETRON HCL) 4 Mg Tablet, 4 MG PO Q6HR PRN for NAUSEA AND VOMITING, #90 05/31/18 Montelukast Sodium (MONTELUKAST SODIUM) 10 Mg Tablet, 10 MG PO DAILY, #90 05/31/18 Metformin Hcl (METFORMIN HCL ER) 500 Mg Tab.er.24h, 500 MG PO DAILY, #180 05/31/18 Losartan Potassium (LOSARTAN POTASSIUM) 100 Mg Tablet, 100 MG PO DAILY, #90 05/31/18 Levothyroxine Sodium (LEVOTHYROXINE SODIUM) 75 Mcg Tablet, 75 MCG PO DAILY, #90 05/31/18 Celecoxib (CELEBREX) 200 Mg Capsule, 200 MG PO DAILY, #30 05/31/18 Atorvastatin Calcium (ATORVASTATIN CALCIUM) 20 Mg Tablet, 20 MG PO DAILY, #90 05/31/18 Acebutolol Hcl (ACEBUTOLOL HCL) 400 Mg Capsule, 400 MG PO BID 08/14/13 Pantoprazole Sodium* (PROTONIX) 40 Mg Tablet.dr, 40 MG PO BID 12/27/12 Medications in the ED Pantoprazole Sodium 40 mg ONCE STAT IV Last administered on 06/18/20at 16:50; Admin Dose 40 MG; Start 06/18/20 at 14:30; Stop 06/18/20 at 14:37; Status DC Morphine Sulfate 2 mg ONCE STAT IV Last administered on 06/18/20at 16:50; Admin Dose 2 MG; Start 06/18/20 at 14:30; Stop 06/18/20 at 14:36; Status DC Ondansetron HCl 4 mg ONCE STAT IV Last administered on 06/18/20at 16:51; Admin Dose 4 MG; Start 06/18/20 at 14:30; Stop 06/18/20 at 14:36; Status DC Sodium Chloride 1,000 ml @ 0 mls/hr Q0M STAT IV Last administered on 06/18/20at 16:51; Admin Dose 999 MLS/HR; Start 06/18/20 at 14:30; Stop 06/18/20 at 14:33; Status DC Sodium Chloride 50 ml @ ud STK-MED ONCE .ROUTE ; Start 06/18/20 at 16:56; Stop 06/18/20 at 16:49; Status DC Iopamidol 74,000 mg STK-MED ONCE INJ ; Start 06/18/20 at 16:56; Stop 06/18/20 at 16:49; Status DC KAMRON WOO MD Jun 18, 2020 18:21
== END 2020-06-18 18:17 | disposition home or self-care (01) ==
LOC: ER 14:35
DX: R10.9 Unspecified abdominal pain (principal); R11.2 Nausea with vomiting, unspecified; R51 Headache; M54.5 Low back pain; K21.9 Gastro-esophageal reflux disease without esophagitis
CPT/HCPCS: 36415; 70450; 71045; 74177; 80053; 81001; 82150; 82550; 82553; 83690; 83735; 83880; 84484; 85025; 85610; 85730; 87086; 93005; 99284; C9113; J2270; J2405; J7030; Q9967

== ENCOUNTER → 2021-12-01 | Outpatient (CLI) | payer MEDICARE ==
[~2021-12-01] MED LIST changes: +IOPAMIDOL 370 MG/ML 200 ML INFUS..BTL INJ ONE; +SODIUM CHLORIDE 0.9% 50ML 50 ML ONE
[2021-12-01 16:37] LABS: CREATININE, SERUM 0.84 mg/dL (0.57-1.11)
== END ==
LOC: CT 15:30
PROVIDERS: ATTEND Internal Medicine Gastroenterology
DX: R10.84 Generalized abdominal pain (principal)
CPT/HCPCS: 36415; 74177; 82565; 84520; Q9967

== ENCOUNTER → 2022-01-11 | Outpatient (CLI) | payer MEDICARE ==
[~2022-01-11] MED LIST changes: -IOPAMIDOL 370 MG/ML 200 ML INFUS..BTL INJ ONE; -SODIUM CHLORIDE 0.9% 50ML 50 ML ONE
[2022-01-11 08:42] LABS: CREATININE, SERUM 0.77 mg/dL (0.57-1.11)
== END ==
LOC: CT 07:41
PROVIDERS: ATTEND Internal Medicine
DX: I77.810 Thoracic aortic ectasia (principal)
CPT/HCPCS: 36415; 82565; 84520

== ENCOUNTER → 2022-04-30 | Outpatient (CLI) | payer MEDICARE ==
[~2022-04-30] MED LIST changes: +REGADENOSON 0.4 MG/5 ML SYR IV ONE
== END ==
LOC: NM 08:06
PROVIDERS: ATTEND Internal Medicine
DX: R79.1 Abnormal coagulation profile (principal)
CPT/HCPCS: 78580; A9540

== ENCOUNTER → 2023-02-28 | Day surgery (SDC) | payer MEDICARE ==
[2023-02-25 10:30] LABS: BASOPHILS # (AUTO) 0.1 (0.0-0.1); BASOPHILS % 0.6 % (0.0-1.0); EOSINOPHILS # (AUTO) 0.1 (0.0-0.4); EOSINOPHILS % 1.1 % (0.0-6.0); HEMATOCRIT 38.4 % (34.2-44.1); HEMOGLOBIN 12.5 g/dL (12.0-16.0); LYMPHOCYTES # (AUTO) 2.2 (1.0-3.2); LYMPHOCYTES % 26.5 % (18.0-39.1); MEAN CORPUSCULAR HGB CONC 32.6 g/dL (31-35); MEAN CORPUSCULAR VOLUME 85.9 fL (81-99); MONOCYTES # (AUTO) 0.7 (0.2-0.8); MONOCYTES % 8.8 % (4.4-11.3); NEUTROPHILS # (AUTO) 5.3 (2.1-6.9); NEUTROPHILS % 62.8 % (38.7-80.0); PLATELET COUNT 312 x10e3/uL (140-360); RED BLOOD COUNT 4.47 x10e6/uL (3.6-5.1); RED CELL DISTRIBUTION WIDTH 15.5 % (11.7-14.4)
[~2023-02-28] MED LIST changes: +DESLORATADINE5 MG PO; +FENTANYL CITRATE/PF 100MCG/2 ML INJ ONE; +FLUTICASONE P15.8 ML INH; +HYDRALAZINE HCL25 MG PO; +HYOSCYAMINE SULFATE 0.5 MG/ML INJ ONE; +LATANOPROST2.5 ML OU; +LIDOCAINE HCL 2% LOCAL INJ 5 ML SDV VIAL INJ ONE; +MELOXICAM7.5 MG PO; +MIDAZOLAM HCL 2 MG/2 ML VIAL ONE; +PROPOFOL IV EMULSION 10 MG/ML 20 ML VIAL ONE; -REGADENOSON 0.4 MG/5 ML SYR IV ONE
[2023-02-28 10:16] VITALS: O2SAT 100
[2023-02-28 10:45] VITALS: BP 137/65; PULSE 58; RESP 16
== END | disposition home or self-care (01) ==
LOC: OR 09:20
PROVIDERS: ATTEND Internal Medicine Gastroenterology
DX: K29.50 Unspecified chronic gastritis without bleeding (principal); K31.A11 Gastric intestinal metaplasia without dysplasia, involving the antrum; K21.9 Gastro-esophageal reflux disease without esophagitis; K31.89 Other diseases of stomach and duodenum; E78.5 Hyperlipidemia, unspecified; I11.0 Hypertensive heart disease with heart failure; I50.9 Heart failure, unspecified; E11.9 Type 2 diabetes mellitus without complications; E03.9 Hypothyroidism, unspecified; J45.909 Unspecified asthma, uncomplicated; M19.90 Unspecified osteoarthritis, unspecified site; Z88.0 Allergy status to penicillin; Z01.810 Encounter for preprocedural cardiovascular examination; Z01.812 Encounter for preprocedural laboratory examination; Z79.1 Long term (current) use of non-steroidal anti-inflammatories (NSAID); Z79.4 Long term (current) use of insulin; Z79.84 Long term (current) use of oral hypoglycemic drugs; Z79.899 Other long term (current) drug therapy
CPT/HCPCS: 36415; 43239; 85025; 88305; 88342; 93005; C9113; J1980; J2001; J2250; J2704; J3010

== ENCOUNTER → 2023-04-14 | Outpatient (CLI) | payer MEDICARE ==
[~2023-04-14] MED LIST changes: -FENTANYL CITRATE/PF 100MCG/2 ML INJ ONE; -HYOSCYAMINE SULFATE 0.5 MG/ML INJ ONE; -LIDOCAINE HCL 2% LOCAL INJ 5 ML SDV VIAL INJ ONE; -MIDAZOLAM HCL 2 MG/2 ML VIAL ONE; -PROPOFOL IV EMULSION 10 MG/ML 20 ML VIAL ONE
== END ==
LOC: RAD 10:04
PROVIDERS: ATTEND Internal Medicine
DX: M25.511 Pain in right shoulder (principal); D21.9 Benign neoplasm of connective and other soft tissue, unspecified

== ENCOUNTER → 2024-06-05 | Outpatient (REF) | payer MEDICARE | LOC: DX 08:41 | PROVIDERS: ATTEND Internal Medicine Endocrinology, Diabetes & Metabolism | DX: M85.88 Other specified disorders of bone density and structure, other site (principal) | CPT/HCPCS: 77080 ==

== ENCOUNTER 2024-07-14 18:58 | Inpatient (IN) | payer MEDICARE ==
[~2024-07-14] VITALS: Ht 157.5 cm; Wt 69.9 kg
[2024-07-14 19:43] LABS: BASOPHILS # (AUTO) 0.1 (0.0-0.1); BASOPHILS % 0.4 % (0.0-1.0); EOSINOPHILS # (AUTO) 0.1 (0.0-0.4); EOSINOPHILS % 0.8 % (0.0-6.0); HEMATOCRIT 44.4 % (34.2-44.1); HEMOGLOBIN 14.1 g/dL (12.0-16.0); LYMPHOCYTES # (AUTO) 1.4 (1.0-3.2); LYMPHOCYTES % 12.1 % (18.0-39.1); MEAN CORPUSCULAR HEMOGLOBIN 27.8 pg (28-32); MEAN CORPUSCULAR HGB CONC 31.8 g/dL (31-35); MEAN CORPUSCULAR VOLUME 87.6 fL (81-99); MONOCYTES # (AUTO) 0.4 (0.2-0.8); MONOCYTES % 3.8 % (4.4-11.3); NEUTROPHILS # (AUTO) 9.2 (2.1-6.9); NEUTROPHILS % 82.5 % (38.7-80.0); PLATELET COUNT 294 x10e3/uL (140-360); RED BLOOD COUNT 5.07 x10e6/uL (3.6-5.1); RED CELL DISTRIBUTION WIDTH 15.3 % (11.7-14.4); WHITE BLOOD COUNT 11.17 x10e3/uL (4.8-10.8)
[2024-07-14 19:51] LABS: BILIRUBIN,URINE NEGATIVE (NEGATIVE); CLARITY,URINE CLEAR (CLEAR); COLOR,URINE YELLOW (YELLOW); KETONES,URINE NEGATIVE (NEGATIVE); LEUKOCYTE ESTERASE ,URINE NEGATIVE (NEGATIVE); NITRITE,URINE NEGATIVE (NEGATIVE); PH,URINE 7 (5 - 7); PROTEIN,URINE DIPSTICK 1+ (NEGATIVE)
[2024-07-14 19:52] LABS: GLUCOSE, URINE >=1000 (NEGATIVE)
[2024-07-14] MEDS: ONDANSETRON HCL INJ 2MG/ML 2ML 2 MG/ML VIAL IV STA (19:58)
[2024-07-14 20:01] LABS: ALBUMIN 3.7 g/dL (3.5-5.0); ANION GAP 15.3 mmol/L (8-16); BILIRUBIN,TOTAL 1.4 mg/dL (0.2-1.2); CALCIUM 9.1 mg/dL (8.4-10.2); CREATININE, SERUM 1.03 mg/dL (0.57-1.11); TOTAL PROTEIN 7.4 g/dL (6.5-8.1)
[2024-07-14 20:02] LABS: POTASSIUM 3.3 mmol/L (3.5-5.1)
[2024-07-14 20:04] LABS: TROPONIN I 0.009 ng/mL (0-0.300)
[2024-07-14 20:10] LABS: EPITHELIAL CELLS,URINE MODERATE /LPF; RBC,URINE 0-5 /HPF (0-5); WBC,URINE (MAN) 0-5 /HPF (0-5)
[2024-07-14] MEDS ORDERED: IOPAMIDOL 370 MG/ML 100 ML INFUS..BTL INJ ONE (20:16)
[2024-07-14] MEDS: Morphine 4mg INJECTION 4 MG/ML INJ IV ONE (21:45)
[2024-07-14] MEDS ORDERED: DEXTROSE 50% SYRINGE 50 ML IV PRN (22:30)
[2024-07-14 23:36] VITALS: PULSE 99; RESP 20; TEMP 98.3
[2024-07-14] MEDS: METRONIDAZOLE 500MG/NS 100ML 100 ML IV SCH (23:36)
[2024-07-15] VITALS (8 sets, daily range): BP systolic 108–129; BP diastolic 54–70; PULSE 55–88; RESP 16–20; TEMP 98.6–100.4; O2SAT 94–99
[2024-07-15] MEDS: SODIUM CHLORIDE 0.9% 1000ML 1,000 ML IV ONE (03:32)
[2024-07-15] MEDS: INSULIN REGULAR, HUMAN 100 UNIT/1 ML SQ SCH (07:30)
[2024-07-15] MEDS: Morphine 4mg INJECTION 4 MG/ML INJ IV PRN (07:43)
[2024-07-15] MEDS: ONDANSETRON HCL INJ 2MG/ML 2ML 2 MG/ML VIAL IV PRN (07:44)
[2024-07-15 07:48] LABS: BASOPHILS % 0.2 % (0.0-1.0); HEMOGLOBIN 13.2 g/dL (12.0-16.0); LYMPHOCYTES # (AUTO) 1.2 (1.0-3.2); MEAN CORPUSCULAR HEMOGLOBIN 27.9 pg (28-32); MEAN CORPUSCULAR HGB CONC 32.2 g/dL (31-35); MEAN CORPUSCULAR VOLUME 86.7 fL (81-99); MONOCYTES % 4.1 % (4.4-11.3); NEUTROPHILS # (AUTO) 20.6 (2.1-6.9); NEUTROPHILS % 89.2 % (38.7-80.0); PLATELET COUNT 237 x10e3/uL (140-360); RED BLOOD COUNT 4.73 x10e6/uL (3.6-5.1); RED CELL DISTRIBUTION WIDTH 15.6 % (11.7-14.4); WHITE BLOOD COUNT 23.07 x10e3/uL (4.8-10.8)
[2024-07-15 08:03] LABS: ALBUMIN 3.1 g/dL (3.5-5.0); ALBUMIN/GLOBULIN RATIO 0.9 (0.8-2.0); ANION GAP 15.1 mmol/L (8-16); CALCIUM 8.3 mg/dL (8.4-10.2); CREATININE, SERUM 0.99 mg/dL (0.57-1.11); TOTAL PROTEIN 6.4 g/dL (6.5-8.1)
[2024-07-15 08:10] LABS: POTASSIUM 3.1 mmol/L (3.5-5.1)
[2024-07-15 11:01] LABS: BAND NEUTROPHILS % (MANUAL) 23 %; BASOPHILS % (MANUAL) 1 % (0-1.5); LYMPHOCYTES % (MANUAL) 8 % (19-48); METAMYELOCYTES % (MANUAL) 2 % (0-0); MONOCYTES % (MANUAL) 5 % (3.4-9.0); NEUTROPHILS % (MANUAL) 61 % (40-74); PLATELET ESTIMATE ADEQUATE; PLATELET MORPHOLOGY COMMENT NORMAL; RBC MORPHOLOGY COMMENT NORMAL
[2024-07-15] MEDS: SODIUM CHLORIDE 0.9% 1000ML 1,000 ML IV SCH (12:54)
[2024-07-16] VITALS (8 sets, daily range): BP systolic 117–146; BP diastolic 60–77; PULSE 57–70; RESP 16–20; TEMP 97.3–99.3; O2SAT 93–98
[2024-07-16] MEDS ORDERED: SUCRALFATE1 GM PO (00:09)
[2024-07-16 05:30] LABS: BASOPHILS # (AUTO) 0.1 (0.0-0.1); BASOPHILS % 0.4 % (0.0-1.0); EOSINOPHILS # (AUTO) 0.1 (0.0-0.4); EOSINOPHILS % 0.4 % (0.0-6.0); HEMATOCRIT 37.2 % (34.2-44.1); HEMOGLOBIN 11.7 g/dL (12.0-16.0); LYMPHOCYTES # (AUTO) 1.5 (1.0-3.2); LYMPHOCYTES % 11.1 % (18.0-39.1); MEAN CORPUSCULAR HEMOGLOBIN 27.9 pg (28-32); MEAN CORPUSCULAR HGB CONC 31.5 g/dL (31-35); MEAN CORPUSCULAR VOLUME 88.6 fL (81-99); MONOCYTES # (AUTO) 0.8 (0.2-0.8); MONOCYTES % 5.6 % (4.4-11.3); NEUTROPHILS # (AUTO) 11.4 (2.1-6.9); NEUTROPHILS % 81.9 % (38.7-80.0); PLATELET COUNT 202 x10e3/uL (140-360); RED CELL DISTRIBUTION WIDTH 15.9 % (11.7-14.4); WHITE BLOOD COUNT 13.88 x10e3/uL (4.8-10.8)
[2024-07-16 05:52] LABS: ALBUMIN 2.8 g/dL (3.5-5.0); ALBUMIN/GLOBULIN RATIO 0.9 (0.8-2.0); ANION GAP 11.2 mmol/L (8-16); BILIRUBIN,TOTAL 2.8 mg/dL (0.2-1.2); CALCIUM 7.8 mg/dL (8.4-10.2); CREATININE, SERUM 0.86 mg/dL (0.57-1.11); TOTAL PROTEIN 5.9 g/dL (6.5-8.1)
[2024-07-16 05:53] LABS: POTASSIUM 3.2 mmol/L (3.5-5.1)
[2024-07-17] VITALS (9 sets, daily range): BP systolic 125–159; BP diastolic 63–76; PULSE 52–65; RESP 16–20; TEMP 97.3–99.6; O2SAT 92–100
[2024-07-17 06:21] LABS: BASOPHILS # (AUTO) 0.1 (0.0-0.1); BASOPHILS % 0.4 % (0.0-1.0); EOSINOPHILS # (AUTO) 0.1 (0.0-0.4); EOSINOPHILS % 0.5 % (0.0-6.0); HEMATOCRIT 37.6 % (34.2-44.1); HEMOGLOBIN 12.2 g/dL (12.0-16.0); LYMPHOCYTES # (AUTO) 1.5 (1.0-3.2); LYMPHOCYTES % 12.8 % (18.0-39.1); MEAN CORPUSCULAR HEMOGLOBIN 28.1 pg (28-32); MEAN CORPUSCULAR HGB CONC 32.4 g/dL (31-35); MEAN CORPUSCULAR VOLUME 86.6 fL (81-99); MONOCYTES % 8.2 % (4.4-11.3); NEUTROPHILS # (AUTO) 9.2 (2.1-6.9); NEUTROPHILS % 77.4 % (38.7-80.0); PLATELET COUNT 206 x10e3/uL (140-360); RED BLOOD COUNT 4.34 x10e6/uL (3.6-5.1); RED CELL DISTRIBUTION WIDTH 15.8 % (11.7-14.4); WHITE BLOOD COUNT 11.94 x10e3/uL (4.8-10.8)
[2024-07-17 07:16] LABS: ALBUMIN 2.8 g/dL (3.5-5.0); ALBUMIN/GLOBULIN RATIO 0.8 (0.8-2.0); ANION GAP 14.3 mmol/L (8-16); BILIRUBIN,TOTAL 1.6 mg/dL (0.2-1.2); CALCIUM 7.9 mg/dL (8.4-10.2); CREATININE, SERUM 0.76 mg/dL (0.57-1.11); TOTAL PROTEIN 6.2 g/dL (6.5-8.1)
[2024-07-17 07:26] LABS: POTASSIUM 3.3 mmol/L (3.5-5.1)
[2024-07-17] MEDS ORDERED: GLUCAGON FOR INJ 1 MG VIAL ONE (08:47)
[2024-07-17] MEDS ORDERED: INDOMETHACIN 50 MG SUPP.RECT RC ONE (13:40)
[2024-07-17] MEDS ORDERED: LIDOCAINE HCL 4% 50 ML BTL ONE (13:44)
[2024-07-17] MEDS ORDERED: IOPAMIDOL 610MG/1ML 300 MG/ML VIAL IV ONE (13:46)
[2024-07-17] MEDS: ONDANSETRON HCL INJ 2MG/ML 2ML 2 MG/ML VIAL ONE (15:14)
[2024-07-17] MEDS: GUAIFENESIN 600 MG TAB PO SCH (17:05)
[2024-07-17] MEDS ORDERED: FENTANYL CITRATE/PF 100MCG/2 ML INJ ONE (18:10)
[2024-07-18] VITALS (9 sets, daily range): BP systolic 147–174; BP diastolic 73–90; PULSE 55–64; RESP 16–20; TEMP 97.3–98.5; O2SAT 97–99
[2024-07-18] MEDS: HYDROMORPHONE 1MG/1ML INJ IV STA ×2 (04:09→05:57)
[2024-07-18 05:58] LABS: BASOPHILS # (AUTO) 0.1 (0.0-0.1); BASOPHILS % 0.4 % (0.0-1.0); EOSINOPHILS # (AUTO) 0.1 (0.0-0.4); EOSINOPHILS % 0.7 % (0.0-6.0); HEMATOCRIT 39.5 % (34.2-44.1); HEMOGLOBIN 12.9 g/dL (12.0-16.0); LYMPHOCYTES # (AUTO) 2.2 (1.0-3.2); LYMPHOCYTES % 19.4 % (18.0-39.1); MEAN CORPUSCULAR HEMOGLOBIN 27.7 pg (28-32); MEAN CORPUSCULAR HGB CONC 32.7 g/dL (31-35); MEAN CORPUSCULAR VOLUME 84.9 fL (81-99); MONOCYTES # (AUTO) 0.9 (0.2-0.8); MONOCYTES % 7.7 % (4.4-11.3); NEUTROPHILS # (AUTO) 8.1 (2.1-6.9); NEUTROPHILS % 71.3 % (38.7-80.0); PLATELET COUNT 232 x10e3/uL (140-360); RED BLOOD COUNT 4.65 x10e6/uL (3.6-5.1); RED CELL DISTRIBUTION WIDTH 15.6 % (11.7-14.4)
[2024-07-18] MEDS ORDERED: IOPAMIDOL 370 MG/ML 100 ML INFUS..BTL INJ ONE (06:20)
[2024-07-18 06:29] LABS: ALBUMIN 2.9 g/dL (3.5-5.0); ALBUMIN/GLOBULIN RATIO 0.8 (0.8-2.0); ANION GAP 10.6 mmol/L (8-16); BILIRUBIN,TOTAL 1.2 mg/dL (0.2-1.2); CALCIUM 8.1 mg/dL (8.4-10.2); CREATININE, SERUM 0.68 mg/dL (0.57-1.11); TOTAL PROTEIN 6.4 g/dL (6.5-8.1)
[2024-07-18 06:31] LABS: POTASSIUM 2.6 mmol/L (3.5-5.1)
[2024-07-18 07:01] LABS: AMYLASE 3047 U/L (25-125)
[2024-07-18 07:59] LABS: LIPASE 10 U/L (8-78)
[2024-07-18] MEDS: POTASSIUM CHLORIDE 20 MEQ TAB CR PO ONE (08:09)
[2024-07-18] MEDS: POTASSIUM CHLORIDE 20MEQ/100ML 100 ML IV ONE (08:09)
[2024-07-18] MEDS: MONTELUKAST SODIUM 10 MG TAB PO SCH (08:10)
[2024-07-18] MEDS: LACTATED RINGER'S 1,000 ML INJ SCH (08:14)
[2024-07-18] MEDS: LACTATED RINGER'S 250 ML IV ONE (08:14)
[2024-07-18] MEDS ORDERED: HYDRALAZINE HCL 20 MG/ML VIAL IV PRN (10:15)
[2024-07-18] MEDS: SODIUM CHLORIDE 0.9% 250ML 250 ML ONE (19:52)
[2024-07-19] VITALS (9 sets, daily range): BP systolic 129–165; BP diastolic 66–82; PULSE 64–74; RESP 18; TEMP 97.8–100.3; O2SAT 93–100
[2024-07-19] MEDS: SODIUM CHLORIDE 0.9% 250ML 250 ML ONE (04:14)
[2024-07-19 05:44] LABS: BASOPHILS # (AUTO) 0.1 (0.0-0.1); BASOPHILS % 0.4 % (0.0-1.0); EOSINOPHILS % 0.3 % (0.0-6.0); HEMATOCRIT 38.5 % (34.2-44.1); HEMOGLOBIN 12.5 g/dL (12.0-16.0); LYMPHOCYTES # (AUTO) 1.5 (1.0-3.2); LYMPHOCYTES % 12.2 % (18.0-39.1); MEAN CORPUSCULAR HGB CONC 32.5 g/dL (31-35); MEAN CORPUSCULAR VOLUME 86.3 fL (81-99); MONOCYTES # (AUTO) 1.1 (0.2-0.8); NEUTROPHILS # (AUTO) 9.3 (2.1-6.9); NEUTROPHILS % 77.6 % (38.7-80.0); PLATELET COUNT 167 x10e3/uL (140-360); RED BLOOD COUNT 4.46 x10e6/uL (3.6-5.1); RED CELL DISTRIBUTION WIDTH 15.8 % (11.7-14.4); WHITE BLOOD COUNT 11.92 x10e3/uL (4.8-10.8)
[2024-07-19] MEDS: HYDROMORPHONE 1MG/1ML INJ IV PRN (06:05)
[2024-07-19 06:15] LABS: ALBUMIN 2.7 g/dL (3.5-5.0); ALBUMIN/GLOBULIN RATIO 0.8 (0.8-2.0); ANION GAP 15.9 mmol/L (8-16); BILIRUBIN,TOTAL 1.1 mg/dL (0.2-1.2); CALCIUM 8.1 mg/dL (8.4-10.2); CREATININE, SERUM 0.65 mg/dL (0.57-1.11)
[2024-07-19 06:16] LABS: POTASSIUM 2.9 mmol/L (3.5-5.1)
[2024-07-19] MEDS: POTASSIUM CHLORIDE 10MEQ/100ML 100 ML IV ONE (08:51)
[2024-07-19] MEDS: POTASSIUM CHLORIDE 20 MEQ TAB CR PO SCH (09:46)
[2024-07-19] MEDS ORDERED: POTASSIUM CHLORIDE 20 MEQ TAB CR PO STA ×2 (09:46→18:55)
[2024-07-19] MEDS: POTASSIUM CHLORIDE 20 MEQ TAB CR PO ONE ×2 (10:18→21:47)
[2024-07-19] MEDS: MELATONIN 3 MG TAB PO ONE (22:40)
[2024-07-20] VITALS (10 sets, daily range): BP systolic 129–170; BP diastolic 64–90; PULSE 64–84; RESP 16–20; TEMP 97.5–100.3; O2SAT 93–99
[2024-07-20] MEDS: ACETAMINOPHEN 325 MG TAB PO PRN (04:14)
[2024-07-20 05:43] LABS: BASOPHILS # (AUTO) 0.1 (0.0-0.1); BASOPHILS % 0.4 % (0.0-1.0); EOSINOPHILS # (AUTO) 0.1 (0.0-0.4); EOSINOPHILS % 0.5 % (0.0-6.0); HEMATOCRIT 37.1 % (34.2-44.1); HEMOGLOBIN 11.9 g/dL (12.0-16.0); LYMPHOCYTES # (AUTO) 2.4 (1.0-3.2); LYMPHOCYTES % 14.3 % (18.0-39.1); MEAN CORPUSCULAR HEMOGLOBIN 27.7 pg (28-32); MEAN CORPUSCULAR HGB CONC 32.1 g/dL (31-35); MEAN CORPUSCULAR VOLUME 86.3 fL (81-99); MONOCYTES # (AUTO) 1.5 (0.2-0.8); MONOCYTES % 8.8 % (4.4-11.3); NEUTROPHILS # (AUTO) 12.6 (2.1-6.9); NEUTROPHILS % 75.2 % (38.7-80.0); PLATELET COUNT 232 x10e3/uL (140-360); RED CELL DISTRIBUTION WIDTH 15.7 % (11.7-14.4); WHITE BLOOD COUNT 16.79 x10e3/uL (4.8-10.8)
[2024-07-20 06:18] LABS: ALANINE AMINOTRANSFERASE 91 IU/L (0-55); ALBUMIN 2.5 g/dL (3.5-5.0); ALBUMIN/GLOBULIN RATIO 0.8 (0.8-2.0); ALKALINE PHOSPHATASE 152 IU/L (40-150); ANION GAP 12.7 mmol/L (8-16); BILIRUBIN,TOTAL 1.4 mg/dL (0.2-1.2); CALCIUM 8.1 mg/dL (8.4-10.2); CARBON DIOXIDE 20 mmol/L (22-29); CHLORIDE 105 mmol/L (98-107); CREATININE, SERUM 0.62 mg/dL (0.57-1.11); EST GLOMERULAR FILTRATION RATE 91 ML/MIN (>=60); GLUCOSE 124 mg/dL (74-118); MAGNESIUM 1.3 MG/DL (1.3-2.1); POTASSIUM 3.7 mmol/L (3.5-5.1); SODIUM 134 mmol/L (136-145); TOTAL PROTEIN 5.7 g/dL (6.5-8.1)
[2024-07-20 06:25] LABS: BUN/CREATININE RATIO 8 (6-25)
[2024-07-20 06:44] LABS: BLOOD UREA NITROGEN < 5 mg/dL (7-26)
[2024-07-20] MEDS ORDERED: SODIUM CHLORIDE 0.9% 250ML 250 ML IV ONE (08:00)
[2024-07-20] MEDS ORDERED: POTASSIUM CHLORIDE 20 MEQ TAB CR PO SCH (09:00)
[2024-07-20 14:10] LABS: BASOPHILS # (AUTO) 0.1 (0.0-0.1); BASOPHILS % 0.3 % (0.0-1.0); EOSINOPHILS # (AUTO) 0.1 (0.0-0.4); EOSINOPHILS % 0.5 % (0.0-6.0); HEMATOCRIT 40.6 % (34.2-44.1); HEMOGLOBIN 13.2 g/dL (12.0-16.0); LYMPHOCYTES # (AUTO) 2.1 (1.0-3.2); LYMPHOCYTES % 11.5 % (18.0-39.1); MEAN CORPUSCULAR HEMOGLOBIN 27.9 pg (28-32); MEAN CORPUSCULAR HGB CONC 32.5 g/dL (31-35); MEAN CORPUSCULAR VOLUME 85.8 fL (81-99); MONOCYTES # (AUTO) 1.5 (0.2-0.8); MONOCYTES % 7.9 % (4.4-11.3); NEUTROPHILS # (AUTO) 14.7 (2.1-6.9); NEUTROPHILS % 79.1 % (38.7-80.0); PLATELET COUNT 242 x10e3/uL (140-360); RED BLOOD COUNT 4.73 x10e6/uL (3.6-5.1); RED CELL DISTRIBUTION WIDTH 15.9 % (11.7-14.4); WHITE BLOOD COUNT 18.59 x10e3/uL (4.8-10.8)
[2024-07-20] MEDS ORDERED: MELATONIN 3 MG TAB PO SCH (21:00)
[2024-07-20] MEDS: MELATONIN 3 MG TAB PO SCH (21:05)
[2024-07-21] VITALS (11 sets, daily range): BP systolic 126–161; BP diastolic 64–91; PULSE 59–82; RESP 16–19; TEMP 97.5–98.8; O2SAT 94–100
[2024-07-21] MEDS: HYDROCODONE/APAP 5MG-325MG TAB PO PRN (02:02)
[2024-07-21 06:20] LABS: BASOPHILS # (AUTO) 0.1 (0.0-0.1); BASOPHILS % 0.4 % (0.0-1.0); EOSINOPHILS # (AUTO) 0.2 (0.0-0.4); EOSINOPHILS % 1.1 % (0.0-6.0); HEMATOCRIT 37.9 % (34.2-44.1); HEMOGLOBIN 12.3 g/dL (12.0-16.0); LYMPHOCYTES # (AUTO) 2.1 (1.0-3.2); LYMPHOCYTES % 12.7 % (18.0-39.1); MEAN CORPUSCULAR HEMOGLOBIN 28.3 pg (28-32); MEAN CORPUSCULAR HGB CONC 32.5 g/dL (31-35); MEAN CORPUSCULAR VOLUME 87.1 fL (81-99); MONOCYTES # (AUTO) 1.3 (0.2-0.8); MONOCYTES % 7.8 % (4.4-11.3); NEUTROPHILS # (AUTO) 12.7 (2.1-6.9); NEUTROPHILS % 76.9 % (38.7-80.0); PLATELET COUNT 244 x10e3/uL (140-360); RED BLOOD COUNT 4.35 x10e6/uL (3.6-5.1); RED CELL DISTRIBUTION WIDTH 15.7 % (11.7-14.4); WHITE BLOOD COUNT 16.48 x10e3/uL (4.8-10.8)
[2024-07-21 06:42] LABS: ALBUMIN 2.4 g/dL (3.5-5.0); ALBUMIN/GLOBULIN RATIO 0.7 (0.8-2.0); ANION GAP 14.1 mmol/L (8-16); BILIRUBIN,TOTAL 1.1 mg/dL (0.2-1.2); CALCIUM 8.1 mg/dL (8.4-10.2); CREATININE, SERUM 0.62 mg/dL (0.57-1.11); TOTAL PROTEIN 5.8 g/dL (6.5-8.1)
[2024-07-21 06:43] LABS: POTASSIUM 3.1 mmol/L (3.5-5.1)
[2024-07-21] MEDS: SENNOSIDES 8.6 MG TAB PO SCH (12:22)
[2024-07-21] MEDS: POLYETHYLENE GLYCOL 3350 17 GM PACK PO SCH (12:22)
[2024-07-21] MEDS: MAGNESIUM SULFATE 2GM/50ML 50 ML IV ONE (12:26)
[2024-07-21] MEDS: POTASSIUM CHLORIDE 10MEQ EA PO ONE (12:27)
[2024-07-21] MEDS: POLYETHYLENE GLYCOL 3350 17 GM PACK PO STA (21:53)
[2024-07-22] VITALS (9 sets, daily range): BP systolic 134–156; BP diastolic 68–81; PULSE 62–75; RESP 16–22; TEMP 97–99; O2SAT 95–100
[2024-07-22] MEDS: METRONIDAZOLE 500MG/NS 100ML 100 ML IV ONE ×2 (02:30→06:40)
[2024-07-22 05:29] LABS: BASOPHILS % 0.2 % (0.0-1.0); EOSINOPHILS # (AUTO) 0.5 (0.0-0.4); EOSINOPHILS % 3.4 % (0.0-6.0); HEMATOCRIT 35.8 % (34.2-44.1); HEMOGLOBIN 11.8 g/dL (12.0-16.0); LYMPHOCYTES # (AUTO) 1.9 (1.0-3.2); LYMPHOCYTES % 12.9 % (18.0-39.1); MEAN CORPUSCULAR HEMOGLOBIN 27.9 pg (28-32); MEAN CORPUSCULAR VOLUME 84.6 fL (81-99); MONOCYTES # (AUTO) 1.1 (0.2-0.8); MONOCYTES % 7.8 % (4.4-11.3); NEUTROPHILS # (AUTO) 10.8 (2.1-6.9); NEUTROPHILS % 74.9 % (38.7-80.0); PLATELET COUNT 285 x10e3/uL (140-360); RED BLOOD COUNT 4.23 x10e6/uL (3.6-5.1); RED CELL DISTRIBUTION WIDTH 15.6 % (11.7-14.4); WHITE BLOOD COUNT 14.42 x10e3/uL (4.8-10.8)
[2024-07-22 05:52] LABS: ALBUMIN 2.3 g/dL (3.5-5.0); ALBUMIN/GLOBULIN RATIO 0.7 (0.8-2.0); ANION GAP 13.2 mmol/L (8-16); BILIRUBIN,TOTAL 0.9 mg/dL (0.2-1.2); CALCIUM 7.9 mg/dL (8.4-10.2); CREATININE, SERUM 0.65 mg/dL (0.57-1.11); MAGNESIUM 1.9 MG/DL (1.3-2.1); TOTAL PROTEIN 5.6 g/dL (6.5-8.1)
[2024-07-22 05:53] LABS: POTASSIUM 3.2 mmol/L (3.5-5.1)
[2024-07-22] MEDS: POLYETHYLENE GLYCOL 3350 17 GM PACK PO SCH (09:00)
[2024-07-22] MEDS: POTASSIUM CHLORIDE 10MEQ EA PO ONE (14:53)
[2024-07-23] VITALS (8 sets, daily range): BP systolic 127–163; BP diastolic 63–75; PULSE 64–80; RESP 17–20; TEMP 97.5–98.7; O2SAT 95–100
[2024-07-23 06:01] LABS: BASOPHILS # (AUTO) 0.1 (0.0-0.1); BASOPHILS % 0.4 % (0.0-1.0); EOSINOPHILS # (AUTO) 0.2 (0.0-0.4); EOSINOPHILS % 1.5 % (0.0-6.0); HEMATOCRIT 37.4 % (34.2-44.1); HEMOGLOBIN 11.9 g/dL (12.0-16.0); LYMPHOCYTES # (AUTO) 1.6 (1.0-3.2); LYMPHOCYTES % 11.4 % (18.0-39.1); MEAN CORPUSCULAR HEMOGLOBIN 27.7 pg (28-32); MEAN CORPUSCULAR HGB CONC 31.8 g/dL (31-35); MONOCYTES # (AUTO) 1.1 (0.2-0.8); MONOCYTES % 7.9 % (4.4-11.3); NEUTROPHILS # (AUTO) 11.1 (2.1-6.9); NEUTROPHILS % 78.2 % (38.7-80.0); PLATELET COUNT 302 x10e3/uL (140-360); RED CELL DISTRIBUTION WIDTH 15.7 % (11.7-14.4); WHITE BLOOD COUNT 14.17 x10e3/uL (4.8-10.8)
[2024-07-23 06:25] LABS: ALANINE AMINOTRANSFERASE 34 IU/L (0-55); ALBUMIN 2.4 g/dL (3.5-5.0); ALBUMIN/GLOBULIN RATIO 0.6 (0.8-2.0); ALKALINE PHOSPHATASE 112 IU/L (40-150); ANION GAP 13.5 mmol/L (8-16); BILIRUBIN,TOTAL 0.9 mg/dL (0.2-1.2); BLOOD UREA NITROGEN < 5 mg/dL (7-26); CARBON DIOXIDE 19 mmol/L (22-29); CHLORIDE 105 mmol/L (98-107); CREATININE, SERUM 0.63 mg/dL (0.57-1.11); EST GLOMERULAR FILTRATION RATE 90 ML/MIN (>=60); GLUCOSE 111 mg/dL (74-118); POTASSIUM 3.5 mmol/L (3.5-5.1); SODIUM 134 mmol/L (136-145); TOTAL PROTEIN 6.4 g/dL (6.5-8.1)
[2024-07-23 06:37] LABS: BUN/CREATININE RATIO 8 (6-25)
[2024-07-23] MEDS: POTASSIUM CHLORIDE 10MEQ EA ONE (07:39)
[2024-07-23] MEDS: METRONIDAZOLE 500MG/NS 100ML 100 ML IV ONE ×4 (07:39→07:40)
[2024-07-23] MEDS: CEFEPIME HCL 1 GM VIAL ONE (07:40)
[2024-07-23] MEDS: METRONIDAZOLE 500MG/NS 100ML 100 ML IV SCH (11:49)
[2024-07-24] VITALS (9 sets, daily range): BP systolic 135–163; BP diastolic 68–86; PULSE 63–79; RESP 18–19; TEMP 97.9–98.7; O2SAT 97–100
[2024-07-24 04:38] LABS: BILIRUBIN,URINE NEGATIVE (NEGATIVE); CLARITY,URINE CLEAR (CLEAR); COLOR,URINE YELLOW (YELLOW); GLUCOSE, URINE NEGATIVE (NEGATIVE); KETONES,URINE NEGATIVE (NEGATIVE); LEUKOCYTE ESTERASE ,URINE NEGATIVE (NEGATIVE); NITRITE,URINE NEGATIVE (NEGATIVE); PH,URINE 7 (5 - 7); PROTEIN,URINE DIPSTICK NEGATIVE (NEGATIVE); URINE UROBILINOGEN 0.2 mg/dL (0.2 - 1)
[2024-07-24 04:39] LABS: BACTERIA,URINE MODERATE /HPF; EPITHELIAL CELLS,URINE MODERATE /LPF; RBC,URINE 0-5 /HPF (0-5); WBC,URINE (MAN) 0-5 /HPF (0-5)
[2024-07-24 06:06] LABS: BASOPHILS # (AUTO) 0.1 (0.0-0.1); BASOPHILS % 0.5 % (0.0-1.0); EOSINOPHILS # (AUTO) 0.2 (0.0-0.4); EOSINOPHILS % 1.3 % (0.0-6.0); HEMATOCRIT 36.3 % (34.2-44.1); HEMOGLOBIN 11.8 g/dL (12.0-16.0); LYMPHOCYTES # (AUTO) 2.1 (1.0-3.2); LYMPHOCYTES % 12.8 % (18.0-39.1); MEAN CORPUSCULAR HGB CONC 32.5 g/dL (31-35); MONOCYTES # (AUTO) 1.3 (0.2-0.8); MONOCYTES % 7.9 % (4.4-11.3); NEUTROPHILS # (AUTO) 12.7 (2.1-6.9); NEUTROPHILS % 76.8 % (38.7-80.0); PLATELET COUNT 290 x10e3/uL (140-360); RED BLOOD COUNT 4.22 x10e6/uL (3.6-5.1); RED CELL DISTRIBUTION WIDTH 15.7 % (11.7-14.4); WHITE BLOOD COUNT 16.57 x10e3/uL (4.8-10.8)
[2024-07-24 06:38] LABS: ALANINE AMINOTRANSFERASE 26 IU/L (0-55); ALBUMIN 2.4 g/dL (3.5-5.0); ALBUMIN/GLOBULIN RATIO 0.6 (0.8-2.0); ALKALINE PHOSPHATASE 108 IU/L (40-150); ANION GAP 14.3 mmol/L (8-16); BILIRUBIN,TOTAL 0.8 mg/dL (0.2-1.2); BLOOD UREA NITROGEN < 5 mg/dL (7-26); BUN/CREATININE RATIO 8 (6-25); CALCIUM 8.1 mg/dL (8.4-10.2); CARBON DIOXIDE 19 mmol/L (22-29); CHLORIDE 105 mmol/L (98-107); CREATININE, SERUM 0.65 mg/dL (0.57-1.11); EST GLOMERULAR FILTRATION RATE 90 ML/MIN (>=60); GLUCOSE 125 mg/dL (74-118); POTASSIUM 3.3 mmol/L (3.5-5.1); SODIUM 135 mmol/L (136-145); TOTAL PROTEIN 6.3 g/dL (6.5-8.1)
[2024-07-24] MEDS: IBUPROFEN 400 MG TAB PO ONE (11:44)
[2024-07-24] MEDS: METHOCARBAMOL 750 MG TAB PO SCH (21:26)
[2024-07-25] VITALS (11 sets, daily range): BP systolic 125–169; BP diastolic 63–98; PULSE 66–93; RESP 16–19; TEMP 96.2–98.5; O2SAT 94–100
[2024-07-25 06:08] LABS: BASOPHILS # (AUTO) 0.1 (0.0-0.1); BASOPHILS % 0.5 % (0.0-1.0); EOSINOPHILS # (AUTO) 0.2 (0.0-0.4); EOSINOPHILS % 1.1 % (0.0-6.0); HEMATOCRIT 38.1 % (34.2-44.1); HEMOGLOBIN 12.4 g/dL (12.0-16.0); LYMPHOCYTES % 10.6 % (18.0-39.1); MEAN CORPUSCULAR HEMOGLOBIN 27.9 pg (28-32); MEAN CORPUSCULAR HGB CONC 32.5 g/dL (31-35); MEAN CORPUSCULAR VOLUME 85.6 fL (81-99); MONOCYTES # (AUTO) 1.2 (0.2-0.8); MONOCYTES % 6.7 % (4.4-11.3); NEUTROPHILS # (AUTO) 14.9 (2.1-6.9); NEUTROPHILS % 80.4 % (38.7-80.0); PLATELET COUNT 379 x10e3/uL (140-360); RED BLOOD COUNT 4.45 x10e6/uL (3.6-5.1); RED CELL DISTRIBUTION WIDTH 15.4 % (11.7-14.4); WHITE BLOOD COUNT 18.53 x10e3/uL (4.8-10.8)
[2024-07-25 06:47] LABS: ALBUMIN 2.5 g/dL (3.5-5.0); ALBUMIN/GLOBULIN RATIO 0.6 (0.8-2.0); ANION GAP 13.4 mmol/L (8-16); BILIRUBIN,TOTAL 0.6 mg/dL (0.2-1.2); CALCIUM 8.3 mg/dL (8.4-10.2); CREATININE, SERUM 0.7 mg/dL (0.57-1.11); TOTAL PROTEIN 6.5 g/dL (6.5-8.1)
[2024-07-25 06:57] LABS: POTASSIUM 3.4 mmol/L (3.5-5.1)
[2024-07-25] MEDS: METHOCARBAMOL 750 MG TAB PO SCH (20:45)
[2024-07-26] VITALS: BP 127/68; PULSE 74; RESP 18; TEMP 97.9; O2SAT 99
[2024-07-26] MEDS ORDERED: HYDROMORPHONE 1MG/1ML INJ IV PRN (03:00)
[2024-07-26 04:00] VITALS: BP 151/73; PULSE 64; RESP 18; TEMP 97.4; O2SAT 99
[2024-07-26 07:27] VITALS: PULSE 75; RESP 16; O2SAT 97
[2024-07-26 07:55] VITALS: BP 136/79; PULSE 76; RESP 16; TEMP 98.4; O2SAT 97
[2024-07-26 07:57] LABS: BASOPHILS # (AUTO) 0.1 (0.0-0.1); BASOPHILS % 0.5 % (0.0-1.0); EOSINOPHILS # (AUTO) 0.2 (0.0-0.4); EOSINOPHILS % 1.6 % (0.0-6.0); HEMATOCRIT 40.2 % (34.2-44.1); LYMPHOCYTES # (AUTO) 2.1 (1.0-3.2); MEAN CORPUSCULAR HEMOGLOBIN 27.7 pg (28-32); MEAN CORPUSCULAR HGB CONC 32.3 g/dL (31-35); MEAN CORPUSCULAR VOLUME 85.7 fL (81-99); MONOCYTES # (AUTO) 1.1 (0.2-0.8); NEUTROPHILS # (AUTO) 9.6 (2.1-6.9); NEUTROPHILS % 73.4 % (38.7-80.0); PLATELET COUNT 435 x10e3/uL (140-360); RED BLOOD COUNT 4.69 x10e6/uL (3.6-5.1); RED CELL DISTRIBUTION WIDTH 15.4 % (11.7-14.4); WHITE BLOOD COUNT 13.09 x10e3/uL (4.8-10.8)
[2024-07-26 08:10] VITALS: BP 136/79; PULSE 76; RESP 16; TEMP 98.4; O2SAT 97
[2024-07-26 08:29] LABS: ALBUMIN 2.7 g/dL (3.5-5.0); ALBUMIN/GLOBULIN RATIO 0.6 (0.8-2.0); ANION GAP 14.3 mmol/L (8-16); BILIRUBIN,TOTAL 0.9 mg/dL (0.2-1.2); CALCIUM 8.8 mg/dL (8.4-10.2); CREATININE, SERUM 0.7 mg/dL (0.57-1.11); TOTAL PROTEIN 7.2 g/dL (6.5-8.1)
[2024-07-26 08:39] LABS: POTASSIUM 3.3 mmol/L (3.5-5.1)
[2024-07-26] MEDS ORDERED: METHOCARBAMOL750 MG PO (09:26)
[2024-07-26] MEDS ORDERED: HYDROCODON-ACE1 EA11 PO (09:26)
[2024-07-26] MEDS ORDERED: POTASSIUM CHLORIDE 20 MEQ TAB CR PO ONE (09:30)
[2024-07-26 11:13] VITALS: BP 126/69; PULSE 84; RESP 17; TEMP 97.4; O2SAT 97
== END 2024-07-26 12:15 | disposition home or self-care (01) | DRG 444 ==
LOC: ER 19:15 → ERHOLD 22:30 → MED/SURG2 07-15 00:04
PROVIDERS: ADMIT Internal Medicine; ATTEND Internal Medicine
PROC: 0F798DZ Dilation of Common Bile Duct with Intraluminal Device, Via Natural or Artificial Opening Endoscopic (ICD-10-PCS; 2024-07-17)
PROC: BF101ZZ Fluoroscopy of Bile Ducts using Low Osmolar Contrast (ICD-10-PCS; 2024-07-17)
PROC: 0FC98ZZ Extirpation of Matter from Common Bile Duct, Via Natural or Artificial Opening Endoscopic (ICD-10-PCS; principal; 2024-07-17 13:43)
DX: K80.31 Calculus of bile duct with cholangitis, unspecified, with obstruction (principal); K85.90 Acute pancreatitis without necrosis or infection, unspecified; K91.89 Other postprocedural complications and disorders of digestive system; I11.0 Hypertensive heart disease with heart failure; I50.9 Heart failure, unspecified; E11.9 Type 2 diabetes mellitus without complications; K21.9 Gastro-esophageal reflux disease without esophagitis; E03.9 Hypothyroidism, unspecified; E78.2 Mixed hyperlipidemia; E87.6 Hypokalemia; K29.70 Gastritis, unspecified, without bleeding; M15.0 Primary generalized (osteo)arthritis; R79.89 Other specified abnormal findings of blood chemistry; H93.19 Tinnitus, unspecified ear; J30.2 Other seasonal allergic rhinitis; E66.3 Overweight; Z68.28 Body mass index [BMI] 28.0-28.9, adult; Z79.4 Long term (current) use of insulin; Z79.84 Long term (current) use of oral hypoglycemic drugs; Z79.890 Hormone replacement therapy; Z90.49 Acquired absence of other specified parts of digestive tract; Z88.0 Allergy status to penicillin
CPT/HCPCS: 36415; 43260; 74018; 74177; 74181; 74328; 80053; 81001; 82150; 82948; 83690; 83735; 84484; 85025; 87040; 93005; 93971; 94799; 99252; 99284; C2625; J0692; J1171; J1610; J2270; J2405; J2470; J3475; J3480; J7030; J7050; Q9967

== ENCOUNTER → 2024-07-31 | Outpatient (REF) | payer MEDICARE ==
[~2024-07-31] MED LIST changes: +HYDROCODON-ACE1 EA11 PO; +METHOCARBAMOL750 MG PO; +SUCRALFATE1 GM PO
== END ==
LOC: RAD 13:40
PROVIDERS: ATTEND Internal Medicine
DX: I80.01 Phlebitis and thrombophlebitis of superficial vessels of right lower extremity (principal)
CPT/HCPCS: 93971

== ENCOUNTER → 2024-09-05 | Outpatient (REF) | payer MEDICARE ==
[~2024-09-05] MED LIST changes: +EUTHYROX88 MCG PO; +JARDIANCE25 MG PO
== END ==
LOC: MAMMO 09:13
PROVIDERS: ATTEND Internal Medicine
DX: Z12.31 Encounter for screening mammogram for malignant neoplasm of breast (principal)
CPT/HCPCS: 77067

== ENCOUNTER → 2024-11-28 | Outpatient (REF) | payer MEDICARE | LOC: RAD 10:45 | PROVIDERS: ATTEND Internal Medicine | DX: M54.2 Cervicalgia (principal); M25.512 Pain in left shoulder | CPT/HCPCS: 72040 ==

== ENCOUNTER 2024-12-18 07:00 | Outpatient (RCR) | payer MEDICARE | END 2024-12-24 | LOC: PT 07:00 | PROVIDERS: ATTEND Internal Medicine | DX: M47.812 Spondylosis without myelopathy or radiculopathy, cervical region (principal); M25.512 Pain in left shoulder; M19.012 Primary osteoarthritis, left shoulder ==

== ENCOUNTER 2025-01-22 08:00 | Outpatient (RCR) | payer MEDICARE | END 2025-01-23 | LOC: PT 08:00 | PROVIDERS: ATTEND Internal Medicine | DX: M25.512 Pain in left shoulder (principal); M19.012 Primary osteoarthritis, left shoulder; M47.812 Spondylosis without myelopathy or radiculopathy, cervical region ==

== ENCOUNTER → 2025-05-01 | Outpatient (REF) | payer MEDICARE | LOC: RAD 08:45 | PROVIDERS: ATTEND Internal Medicine | DX: M25.512 Pain in left shoulder (principal) ==